=== PATIENT | male | born 1960 | race Caucasian/White ===

== ENCOUNTER 2020-11-08 16:48 | Outpatient (REF) | payer BC, SELFPAY ==
--- NOTE | ~2020-11-08 | XR_ITS ---
EXAMINATION: XR FOOT, RIGHT CLINICAL INFORMATION: Right foot injury. COMPARISON: None TECHNIQUE: AP, lateral, and oblique views of the right foot. FINDINGS: There is a mild hallux valgus deformity with mild degenerative changes at the first metatarsophalangeal joint. There is no acute fracture or dislocation. Nonacute deformity seen in the distal aspect of the fifth metatarsal with mild fifth metatarsophalangeal degenerative joint changes. The tarsal bones are normally aligned. There is a small retrocalcaneal spur. The soft tissues are unremarkable. XR/XR foot RT min 3V IMPRESSION: 1. Mild hallux valgus deformity and mild first metatarsophalangeal osteoarthritis. 2. Old healed fracture and surgery degenerative changes in the distal fifth metatarsal with mild osteoarthritis. 3. Small degenerative retrocalcaneal spur.
== END 2020-11-08 16:49 | disposition home or self-care (01) ==
LOC: HO.HMGCX 16:48
PROVIDERS: PCP Physician Assistant; Visit Provider Nurse Practitioner Family
DX: S99.921A Unspecified injury of right foot, initial encounter (principal)
CPT/HCPCS: 73630

== ENCOUNTER 2021-02-07 15:05 | Outpatient (REF) | payer BC, SELFPAY ==
[2021-02-07 16:26] LABS: PSA,Total (Free>4and<10) 1.56 ng/mL (0.00-4.00)
== END 2021-02-07 15:06 | disposition home or self-care (01) ==
LOC: HO.LAB 15:05
PROVIDERS: PCP Physician Assistant; Visit Provider Urology
DX: Z12.5 Encounter for screening for malignant neoplasm of prostate (principal); R97.20 Elevated prostate specific antigen [PSA]
CPT/HCPCS: 36415; 84153

== ENCOUNTER → 2021-02-09 15:20 | Outpatient (BNVA) | payer BC, SELFPAY | PROVIDERS: PCP Physician Assistant; Visit Provider Urology ==

== ENCOUNTER 2021-11-22 18:31 | Emergency (ER) | payer BC, SELFPAY ==
[2021-11-22 19:58] VITALS: BP 102/84; PULSE 72; RESP 15; TEMP 36.4; O2SAT 98; BMI 28.5
[2021-11-22] MEDS: Lidocaine HCl 2 % MPF 5 ML VIAL SUBCUT (22:36)
--- NOTE | 2021-11-22 23:31 | ED_ITS ---
HPI - Skin/Abscess/Foreign Bdy General Chief complaint: Skin/Abscess/Foreign Body Stated complaint: Abscess on Back Time Seen by Provider: 11/22/21 22:14 Source: patient Mode of arrival: ambulatory Limitations: no limitations History of Present Illness HPI narrative: Patient presents to the emergency department for evaluation of an abscess has been present to his upper back x1 week. Three days ago he was evaluated at an urgent care and was given a prescription for Bactrim but feels that the size and redness are increasing. Denies additional skin lesions. Denies fevers, chills, numbness or tingling near the abscess. Reports a history of similar occurring more than 20 years ago. MD complaint: abscess/boil Onset (ago): week(s) Quality: dull Related Data Previous Rx's Medication Instructions Recorded losartan 50 mg-hydrochlorothiazide 1 tab PO DAILY 90 Days #90 tab 01/18/21 12.5 mg tablet diclofenac sodium 75 mg 75 mg PO BID 30 Days #60 tab 06/07/21 tablet,delayed release ezetimibe 10 mg tablet 10 mg PO DAILY #30 tab 08/01/21 pravastatin 10 mg tablet 10 mg PO DAILY #90 tab 09/03/21 tamsulosin 0.4 mg capsule 0.4 mg PO DAILY #30 cap 10/05/21 sulfamethoxazole 800 1 tab PO Q12H 10 Days #20 tab 11/19/21 mg-trimethoprim 160 mg tablet (Bactrim DS) Allergies Allergy/AdvReac Type Severity Reaction Status Date / Time No Known Allergies Allergy Mild NOT Verified 11/19/21 13:56 APPLICABLE cephalexin [Keflex] Allergy Unknown rash Verified 11/19/21 13:56 niacin Allergy Unknown Rash Verified 11/19/21 13:56 [Niaspan Extended-Release] Statins Support Allergy Unknown Rash Verified 11/19/21 13:56 Review of Systems Review of Systems: Constitutional: No fever, chills, weakness or fatigue. Skin: No rash or itching. Positive abscess on back Cardiovascular: No chest pain. Respiratory: No shortness of breath, cough or sputum production. Gastrointestinal: No nausea, vomiting or diarrhea. No abdominal pain Genitourinary: No burning micturition. Musculoskeletal: No muscle pain, back pain, joint pain or stiffness. Psychiatric: No depression or anxiety. Yes all other systems are reviewed and are negative PMFSH Past Medical History Attestation statement: The following information was validated with the patient. 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 Blood pressure normal.? Heart rate normal.? Respiration rate normal. Temperature normal.? Oxygen saturation normal. Appearance: Alert.?Oriented to person, place and time. No acute distress.?Normal affect. Eyes: Pupils equal, round and reactive to light.? ENT: Pharynx normal.?? Neck: Normal inspection.? Neck supple.?? CVS: Heart sounds normal. Normal heart rate and rhythm.? Pulses normal.?? Respiratory: No respiratory distress.? Lung sounds clear to auscultation bilaterally?? Abdomen: Soft and non-tender. Skin: Skin warm and dry.? Normal skin color. 3 cm abscess to right upper back it is erythematous and indurated, central fluctuance Extremities: No lower extremity edema.? Neuro: Moves all extremities spontaneously. Sensation intact bilaterally. No motor deficits. Ambulates with normal steady gait. Course Course Course Narrative: Patient is a 61-year-old male presenting to the emergency department for evaluation of a cyst on his back. History physical exam consistent with abscess. No systemic toxicity, and patient is well-appearing. There is surrounding cellulitis, however he is already prescribed Bactrim. Not consistent with necrotizing fasciitis, myositis, DVT, osteomyelitis. Patient is now status post incision and drainage of abscess and tolerated the procedure well. No complications. No labs or imaging indicated at this time. Will discharge home to continue course of oral antibiotics and symptomatic treatment instructions. Discussed reasons to return to the emergency department, and follow-up with primary care provider. Patient agreeable with plan of care. Procedures Abscess I/D Site: back Side (if applicable): right Local Anesthetic: lidocaine 2% Amount of anesthesia used (mL): 5 Technique: incised with blade Irrigation: Yes Packing used?: none Discharge Plan Discharge Clinical Impression: Abscess Patient Disposition: Home, Self-Care Instructions: Abscess (ED), Incision and Drainage (ED) Additional Instructions: Continue taking Bactrim as prescribed. You may return to the emergency department for any new or worsening symptoms or concerns. If you develop worsening redness, swelling, pain, drainage, fevers, chills he should come back for further evaluation. Please contact your primary care provider to schedule follow-up visit within 1 week. Prescriptions: No Action losartan-hydrochlorothiazide 50-12.5 mg tablet 1 tab PO DAILY 90 Days Qty: 90 3RF diclofenac sodium 75 mg tablet,delayed release (DR/EC) 75 mg PO BID 30 Days Qty: 60 2RF ezetimibe 10 mg tablet 10 mg PO DAILY Qty: 30 4RF pravastatin 10 mg tablet 10 mg PO DAILY Qty: 90 1RF tamsulosin 0.4 mg capsule 0.4 mg PO DAILY Qty: 30 3RF sulfamethoxazole-trimethoprim [Bactrim DS] 800-160 mg tablet 1 tab PO Q12H 10 Days Qty: 20 0RF Referrals: Brooks Martinez PA-C [Primary Care Provider] - 1 week Interventions: ED Discharge Assessment Last Done: 11/22/21 23:57 Discharge Date/Time: 11/22/21 23:58
== END 2021-11-22 23:58 | disposition home or self-care (01) ==
PROVIDERS: Emergency Provider Internal Medicine; PCP Physician Assistant
DX: L02.212 Cutaneous abscess of back [any part, except buttock and flank] (principal); Z87.891 Personal history of nicotine dependence; Z79.899 Other long term (current) drug therapy
CPT/HCPCS: 10060; 99283; 99284

== ENCOUNTER → 2022-01-08 07:44 | Outpatient (REF) | payer BC, SELFPAY ==
--- NOTE | 2022-01-08 07:44 | CA_ITS ---
Acquisition Time: 2022-01-08 08:01:36 Total Exercise Time: 00:05:00 Test Indications: Chest Pain Medications: Protocol: LOUANN Max HR: 139 BPM 87% of Pred: 159 BPM Max BP: 172/082 mmHG Max Work Load: 7.0 METS Exercise stress test with exercise 5 min of Louann protocol, achieving 87% MPHR, 7 METs, with report of bilateral knee discomfort, without anginal symptoms, with isolated PAC, atrial cuplets and up to a 4 beat atrial run, with isolated PVC and one ventricular cuplet, with normotensive response to exercise, without EKG changes meeting criteria for ischemia. Test reviewed with Dr Ferrer. Referred By: Brooks Martinez Overread By: MIRIAN REYNOSO
== END ==
LOC: HO.CARD 07:44
PROVIDERS: PCP Physician Assistant; Visit Provider Physician Assistant
DX: R07.89 Other chest pain (principal)
CPT/HCPCS: 93017

== ENCOUNTER 2022-04-11 16:01 | Outpatient (REF) | payer BC, SELFPAY ==
[2022-04-11 16:40] LABS: Hemoglobin 15.1 g/dl (14.0-18.0); Mean Corpuscular HGB Conc 34.3 g/dl (31.0-36.0); Mean Corpuscular Volume 87.5 fL (80.0-98.0); Mean Platelet Volume 11.3 fL (9.4-12.4); Platelet Count 243 X10*3/uL (160-400); Red Blood Count 5.03 X10*6/uL (4.60-5.80); Red Cell Distribution Width 11.9 % (11.0-16.0); White Blood Count 10.5 X10*3/uL (4.8-10.8)
[2022-04-11 17:00] LABS: Alanine Aminotransferase 45 U/L (0-40); Albumin Level 4.6 g/dL (3.5-5.0); Alkaline Phosphatase 104 U/L (39-117); Anion Gap 15 (12-20); Aspartate Amino Transferase 27 U/L (5-37); Bilirubin Total 0.6 mg/dL (0.0-1.0); Blood Urea Nitrogen 24 mg/dL (9-16); Calcium 9.6 mg/dL (8.4-10.2); Carbon Dioxide 28 mmol/L (22-29); Chloride 105 mmol/L (96-108); Cholesterol 184 mg/dL; Estimated Glomerular Filt Rate > 60; Glucose Fasting 94 mg/dL (60-99); HDL Cholesterol 51 mg/dL; LDL Cholesterol Calculated 104 mg/dl; Potassium 3.7 mmol/L (3.3-5.1); Sodium 144 mmol/L (135-145); Total Protein 7.5 g/dL (6.5-8.0); Triglycerides 149 mg/dL
[2022-04-11 17:06] LABS: Prothrombin Time 11.5 SEC (10.0-13.1)
[2022-04-11 17:21] LABS: TSH reflex Free T4 0.78 uIU/mL (0.32-4.0)
[2022-04-11 17:27] LABS: Prostate Specific Antigen 2.07 ng/mL (<0.05-4.0)
[2022-04-11 17:43] LABS: Creatinine Urine 175.86 mg/dL; Microalbum/Creatinine Ratio Ur 3.9 ug/mg cr
== END 2022-04-11 16:02 | disposition home or self-care (01) ==
LOC: HO.LAB 16:01
PROVIDERS: Urology; PCP Physician Assistant; Visit Provider Physician Assistant
DX: Z01.818 Encounter for other preprocedural examination (principal); Z12.5 Encounter for screening for malignant neoplasm of prostate; N40.0 Benign prostatic hyperplasia without lower urinary tract symptoms; I10 Essential (primary) hypertension; E78.2 Mixed hyperlipidemia
CPT/HCPCS: 36415; 80053; 80061; 82043; 84153; 84443; 85027; 85610

== ENCOUNTER → 2022-04-12 06:15 | Outpatient (REF) | payer BC, SELFPAY ==
--- NOTE | 2022-04-12 06:30 | ECG_ITS ---
Test Reason : pre op Blood Pressure : / mmHG Vent. Rate : 066 BPM Atrial Rate : 066 BPM P-R Int : 222 ms QRS Dur : 092 ms QT Int : 394 ms P-R-T Axes : -24 -15 021 degrees QTc Int : 413 ms Sinus rhythm with 1st degree A-V block Inferior infarct , age undetermined Abnormal ECG When compared with ECG of 28-MAY-2007 12:16, No significant change was found Referred By: Brooks Martinez Electronically Signed By:EUGENIO ANDRADE
== END ==
LOC: HO.CARD 06:15
PROVIDERS: PCP Physician Assistant; Visit Provider Physician Assistant
DX: Z01.818 Encounter for other preprocedural examination (principal)
CPT/HCPCS: 93005

== ENCOUNTER 2022-08-29 16:00 | Outpatient (RCR) | payer BC, SELFPAY | END 2022-08-30 13:25 | disposition home or self-care (01) | LOC: HO.PT 16:00 | PROVIDERS: PCP Physician Assistant; Visit Provider Orthopaedic Surgery | DX: Z96.652 Presence of left artificial knee joint (principal) | CPT/HCPCS: 97110; 97112; 97116; 97140; 97161; 97530 ==

== ENCOUNTER 2022-11-13 10:38 | Outpatient (REF) | payer BC, SELFPAY ==
--- NOTE | 2022-11-13 10:41 | ECG_ITS ---
Test Reason : preop Blood Pressure : / mmHG Vent. Rate : 072 BPM Atrial Rate : 072 BPM P-R Int : 232 ms QRS Dur : 092 ms QT Int : 384 ms P-R-T Axes : 022 -09 057 degrees QTc Int : 420 ms Sinus rhythm with 1st degree A-V block Inferior infarct (cited on or before 12-APR-2022) Abnormal ECG When compared with ECG of 12-APR-2022 06:28, No significant change was found Referred By: Yael Ledbetter Electronically Signed By:MYNOR KHAN
[2022-11-13 11:10] LABS: MANUAL DIFF FLAG NO
[2022-11-13 12:10] LABS: Basophils Percent Auto 0.5 % (0-2); Eosinophils Absolute Auto 0.4 X10*3/uL (0.0-0.4); Eosinophils Percent Auto 4.9 % (0-4); Hematocrit 44.2 % (42.0-52.0); Hemoglobin 14.4 g/dl (14.0-18.0); Imm Gran Abs Auto 0.02 X10*3/uL (0.00-0.03); Imm Gran Pct Auto 0.3 % (0.0-0.4); Lymphocytes Absolute Auto 1.7 X10*3/uL (1.2-4.9); Lymphocytes Percent Auto 23.6 % (20-40); Mean Corpuscular HGB Conc 32.6 g/dl (31.0-36.0); Mean Corpuscular Hemoglobin 29.4 pg (27.0-33.0); Mean Corpuscular Volume 90.4 fL (80.0-98.0); Mean Platelet Volume 11.4 fL (9.4-12.4); Monocytes Absolute Auto 0.6 X10*3/uL (0.1-1.2); Monocytes Percent Auto 7.9 % (2-11); Neutrophils Absolute Auto 4.6 x10*3/uL (2.0-8.3); Neutrophils Percent Auto 62.8 % (45-73); Platelet Count 242 X10*3/uL (160-400); Red Blood Count 4.89 X10*6/uL (4.60-5.80); Red Cell Distribution Width 12.3 % (11.0-16.0); White Blood Count 7.3 X10*3/uL (4.8-10.8)
[2022-11-13 12:21] LABS: INTERNATIONAL NORM RATIO 0.9 (0.9-1.1); Prothrombin Time 10.8 SEC (10.0-13.1)
== END 2022-11-13 10:39 | disposition home or self-care (01) ==
LOC: HO.LAB 10:38
PROVIDERS: PCP Physician Assistant; Visit Provider Nurse Practitioner Family
DX: Z01.818 Encounter for other preprocedural examination (principal); Z13.0 Encounter for screening for diseases of the blood and blood-forming organs and certain disorders involving the immune mechanism
CPT/HCPCS: 36415; 85025; 85610; 93005

== ENCOUNTER 2022-11-18 15:20 | Outpatient (REF) | payer BC, SELFPAY ==
[2022-11-18 17:03] LABS: Hematocrit 42.5 % (42.0-52.0); Hemoglobin 14.2 g/dl (14.0-18.0); Mean Corpuscular HGB Conc 33.4 g/dl (31.0-36.0); Mean Corpuscular Hemoglobin 29.6 pg (27.0-33.0); Mean Corpuscular Volume 88.7 fL (80.0-98.0); Mean Platelet Volume 11.9 fL (9.4-12.4); Platelet Count 245 X10*3/uL (160-400); Red Blood Count 4.79 X10*6/uL (4.60-5.80); Red Cell Distribution Width 12.1 % (11.0-16.0); White Blood Count 10.4 X10*3/uL (4.8-10.8)
[2022-11-18 17:28] LABS: Alanine Aminotransferase 40 U/L (0-40); Albumin Level 4.4 g/dL (3.5-5.0); Alkaline Phosphatase 100 U/L (39-117); Anion Gap 12 (12-20); Aspartate Amino Transferase 24 U/L (5-37); Bilirubin Total 0.6 mg/dL (0.0-1.0); Blood Urea Nitrogen 17 mg/dL (9-16); Calcium 9.7 mg/dL (8.4-10.2); Carbon Dioxide 27 mmol/L (22-29); Chloride 106 mmol/L (96-108); Cholesterol 174 mg/dL; Estimated Glomerular Filt Rate > 60; Glucose Random 87 mg/dL (60-115); HDL Cholesterol 48 mg/dL; LDL Cholesterol Calculated 84 mg/dl; Potassium 3.8 mmol/L (3.3-5.1); Sodium 141 mmol/L (135-145); Total Protein 6.9 g/dL (6.5-8.0); Triglycerides 210 mg/dL
[2022-11-18 17:45] LABS: Prostate Specific Antigen Scr 1.58 ng/mL (<0.05-4.0); TSH reflex Free T4 1.98 uIU/mL (0.32-4.0)
[2022-11-18 18:04] LABS: Creatinine Urine 107.41 mg/dL; Microalbum/Creatinine Ratio Ur 7.4 ug/mg cr
== END 2022-11-18 15:21 | disposition home or self-care (01) ==
LOC: HO.LAB 15:20
PROVIDERS: PCP Physician Assistant; Visit Provider Nurse Practitioner Family
DX: Z01.818 Encounter for other preprocedural examination (principal); Z12.5 Encounter for screening for malignant neoplasm of prostate; I10 Essential (primary) hypertension; E78.2 Mixed hyperlipidemia
CPT/HCPCS: 36415; 80053; 80061; 82043; 84153; 84443; 85027

== ENCOUNTER 2023-02-19 10:00 | Outpatient (RCR) | payer BC, SELFPAY ==
--- NOTE | 2023-02-27 10:33 | MHC.PT.DC ---
[facility] [place] Office [place] Office [place] Office [address] Leonard Hough [address] [phone] F: [phone] F: [phone] F: [phone] F: [phone] Physical Therapy Discharge Report Diagnosis: S/P FAISAL Date of Surgery: 12/18/22 Date of Evaluation: 12/27/22 Date of Discharge: 02/20/23 Treatments to Date: 13 Cancellations to Date: 0 No Shows to Date: 0 Discharge Status: Achieved Goals Improved Function Independent with HEP Discharge Summary: Ta has progressed well with PT and has met goals of therapy. He demonstrates ROM 0-115 and strength is WNLs. He is independent with HEP and self management of symptoms. He has been instructed to continue with program and contact us with questions or concerns. Electronically signed by: Giovana Burciaga PT DPT Please sign and return to therapist. Thank you for your referral.
== END 2023-02-27 10:33 | disposition home or self-care (01) ==
LOC: HO.PT 10:00
PROVIDERS: PCP Physician Assistant; Visit Provider Orthopaedic Surgery
DX: Z98.890 Other specified postprocedural states (principal)
CPT/HCPCS: 97110; 97140; 97161; 97530

== ENCOUNTER 2023-07-30 08:17 | Outpatient (AMB) | payer BC, SELFPAY ==
[2023-07-30 08:34] VITALS: BP 140/98; PULSE 84; O2SAT 94; BMI 30.1
--- NOTE | 2023-07-30 08:34 | MHC.PC.OV ---
Vital Signs 07/30/23 08:34 Height 5 ft 11 in Weight 216 lb BMI 30.1 BP 140/98 H Blood Pressure Location Lt brachial Position Sitting Pulse 84 Pulse Source Pulse Oximeter Pulse Oximetry (%) 94 Oxygen Delivery Method Room Air Intake Visit Reasons: Missed last appointment in January ?? Allergies cephalexin [Keflex] Allergy (Unknown, Verified 07/30/23 08:45) rash niacin [Niaspan Extended-Release] Allergy (Unknown, Verified 07/30/23 08:45) Rash Statins Support Allergy (Unknown, Verified 07/30/23 08:45) Rash Medication List - Last Reconciled 07/30/23 by Brooks Martinez PA-C diclofenac sodium 75 mg PO BID 30 days ezetimibe 10 mg PO DAILY 90 days losartan-hydrochlorothiazide 50-12.5 mg 1 tab PO DAILY 90 days pravastatin 10 mg PO DAILY tamsulosin 0.4 mg PO DAILY Tobacco use date assessed: 07/30/23 Dental Screening Dental Screen Date: 07/30/23 Did you have a dental visit in the last 12 months?: Yes Did you have a dental problem in the last 6 months where you did not have access to dental care?: No Was dental information given to patient?: Patient has dentist HPI Missed last appointment in January ?? HPI Details Patient is a 62-year-old male here today for for an annual physical.? Patient is status post total knee arthroplasty.? Patient has a past medical history significant for hypertension, hyperlipidemia, knee osteoarthritis. concerns--> reports having an a cough, fatigue and shortness of breath over the last 3 weeks. He does report other folks in his household with similar symptoms. Has been using a lot of cough and cold medication [id number]. . Hypertension:? Patient's blood pressure today in office slightly elevated likely secondary to his using [id number] cough cold medication at this time..? He denies any headaches, shortness of breath or recent chest pain. .. Hyperlipidemia- patient continues on low-dose statin therapy with good effect. Most recent lipid panel acceptable with LDL at 104 Vaccines:? Up-to-date tetanus., UTD with COVID vac, up-to-date with shingles vaccine up-to-date with tetanus ? .. ? Colonoscopy done 2018 -polyp found repeat 5 years.-needs repeat colonoscopy PFSH Surgical History S/P left knee arthroscopy S/P nasal surgery History of back surgery S/P laparoscopic hernia repair Social History (Updated 07/30/23 @ 08:52 by Brooks Martinez PA-C) [facility] Alcohol intake: current Alcohol intake frequency: holidays/special occasions only Patient Tobacco Use Status: Former Tobacco user Quit Date: 1998 e-Cigarette/Vaping Use: Never Used Second Hand Smoke Exposure: Yes Substance Use Type: Marijuana service: No Current occupational status: retired 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 1. Little interest or pleasure in doing things: not at all 2. Feeling down, depressed, or hopeless: not at all 3. Trouble falling or staying asleep, or sleeping too much: not at all 4. Feeling tired or having little energy: not at all 5. Poor appetite or overeating: not at all 6. Feeling bad about yourself - or that you are a failure or have let yourself or your family down: not at all 7. Trouble concentrating on things, such as reading the newspaper or watching television: not at all 8. Moving or speaking so slowly that other people could have noticed. Or the opposite - being so fidgety or restless that you have been moving around a lot more than usual: not at all 9. Thoughts that you would be better off or of hurting yourself in some way: not at all Total score: 0 Depression Screening Interpretation: Negative Depression Screening Done: Yes Source: Developed by Drs. Ta Sanchez, Alivia Islas, Tony Richardson and colleagues, with an educational lucy from [employer]. Thrive Questionnaire Date Thrive assessed: 07/30/23 I am a: Patient What is your living situation today?: I have a steady place to live Within the past 12 months, did the food you bought not last and you didn't have the money to get more?: Never true Within the past 12 months, did you worry whether your food would run out before you got money to buy more?: Never true Do you have trouble paying for medicines?: No Do you have trouble getting transportation to medical appointments?: No Do you have trouble paying your heating and electricity bill?: No Do you have trouble taking care of your child, family member or friend?: No Do you have trouble with day-to-day activities such as bathing, preparing meals, shopping, managing finances, etc.?: No Are you currently unemployed and looking for a job?: No Are you interested in more education?: No Please select the resources that you would like help with: None THRIVE Score: 0 AUDIT C Alcohol Use Questionnaire (AUDIT-C) 1. How often do you have a drink containing alcohol?: Monthly or less 2. How many drinks containing alcohol do you have on a typical day when you are drinking?: 1 or 2 3. How often do you have six or more drinks on one occasion?: Never Total Score: 1 MAXIMINO-7 AMB Questionnaire MAXIMINO-7 Date MAXIMINO - 7 assessed: 07/30/23 Source: Developed by Drs. Ta Sanchez, Alivia Islas, Tony Richardson and colleagues, with an educational lucy from [employer]. Review of Systems Const Denies body aches, Denies chills, Denies excessive sweating, Denies fatigue, Denies fever(s) and Denies headache(s) Eyes Denies blurry vision ENT Denies dysphagia, Denies vertigo, Denies dizziness, Denies headache(s), Denies hearing loss and Denies tinnitus Card Denies chest pain, Denies chest pain with activity, Denies syncope, Denies irregular heart rhythm and Denies dyspnea Resp Denies chest congestion, Denies cough, Denies hemoptysis, Denies dyspnea and Denies wheezing GI Denies abdominal pain, Denies melena, Denies hematochezia, Denies coffee ground emesis, Denies dysphagia, Denies diarrhea, Denies nausea and Denies vomiting Denies difficulty urinating, Denies dysuria, Denies urinary frequency, Denies urinary hesitancy and Denies urinary urgency Musc Denies arthralgias, Denies limited range of motion, Denies muscle cramps and Denies muscle weakness Skin/Breast Denies rash and Denies skin ulcer Neuro Denies Abnormal speech present, Denies confusion, Denies vertigo, Denies dizziness, Denies syncope, Denies headache(s), Denies memory loss and Denies seizure-like activity Psych Denies anxiety, Denies confusion, Denies depression, Denies memory loss, Denies panic attacks and Denies paranoia Endo Denies excessive sweating, Denies fatigue, Denies flushing, Denies polydipsia and Denies polyuria Aller/Immun Denies wheezing Physical exam (Primary Care) Vital Signs: Last Vital Signs Pulse 84 07/30/23 08:34 BP 140/98 H 07/30/23 08:34 Pulse Ox 94 07/30/23 08:34 Oxygen Delivery Method Room Air 07/30/23 08:34 BMI result Body Mass Index 30.1 Tobacco/Smoking Status: Tobacco use Status Tobacco use date assessed 07/30/23 07/30/23 08:39 Patient Tobacco Use Status Former Tobacco user 07/30/23 08:34 e-Cigarette/Vaping Use Never Used 07/30/23 08:34 PHQ-9: PHQ-9 Score PHQ-9: Total score 0 07/30/23 08:41 Depression Screening Interpretation: Negative Thrive Assessment: Date of Thrive Assessment Date Thrive assessed 07/30/23 07/30/23 08:39 Const General: cooperative, comfortable, no acute distress, alert and awake; No confusion Orientation/consciousness: oriented to person, oriented to place, patient oriented x3 and No confusion HENMT Head: Yes normocephalic Ears: external ears normal and TM's normal bilaterally Face and sinus: No sinus tenderness Mouth: Normal oral and palatal mucosa present and tongue normal Teeth and gingiva: dentition normal and gingiva normal Throat: Yes posterior oropharynx normal, Yes tonsils normal and Yes uvula midline Eyes Conjunctivae: conjunctivae normal Sclerae: sclerae normal Pupils: Equal, round and reactive pupils present EOM: EOMs intact bilaterally Direct Ophthalmoscopy: No no photophobia Neck Neck: Yes no lymphadenopathy, No tender and Yes no JVD Thyroid: Thyroid normal Carotids: no bruits Chest Chest palpation & inspection: no tenderness Resp Effort & Inspection: normal respiratory effort, no audible wheezes, not labored and no stridor Auscultation: no crackles, no rales, no rhonchi and no wheezes Cardio Jugular venous distension: no JVD Rate: regular rate, not bradycardic and not tachycardic Rhythm: regular rhythm Bruits: no carotid bruits Peripheral pulses: Peripheral pulses 2+ throughout GI Inspection: Yes normal to inspection, No abdominal wall ecchymosis and No visible herniation Palpation (GI): Soft to palpation, nontender, no guarding, not rigid and No hepatosplenomegaly present Auscultation: normoactive bowel sounds General: Yes no CVA tenderness Back/Spine/Pelvis Back: no CVA tenderness and No back tenderness Cervical Spine: cervical ROM normal Thoracic/Lumbar Spine: thoracic and lumbar spine normal to inspection, straight leg raise negative bilaterally, No thoraco-lumbar ROM limited and No lumbar spinal tenderness Skin Lesions: no lesions Rashes: no rashes Wounds: no wounds Neuro General: oriented to person, oriented to place, patient oriented x3, CN's II-XI intact bilaterally and No confusion Cranial nerves: Yes Equal, round and reactive pupils present and Yes Normal accommodation reflex present Cognition (Neuro): normal cognition Speech: No Abnormal speech present Gait exam (Neuro): Normal gait present Motor exam (neuro): 5/5 motor strength present throughout Extrem Right upper extremity: full ROM; no cyanosis Left upper extremity: full ROM; no cyanosis Right lower extremity: no edema Left lower extremity: no edema Psych Appearance: grossly normal Mental Status: mental status grossly normal Affect: normal affect Attitude: cooperative Thought process: Normal thought process present Assessment and Plan Assessment & Plan (1) Annual physical exam: Code(s): Z00.00 - Encounter for general adult medical examination without abnormal findings (2) HTN (hypertension): Code(s): I10 - Essential (primary) hypertension Qualifiers: Hypertension type: essential hypertension Qualified Code(s): I10 - Essential (primary) hypertension Plan: Patient's blood pressure slightly elevated today in office, has been on cough cold medication for his bronchitis over the last few weeks.. Will continue current dose of antihypertensive medication with goal blood pressure to be below 140/90 (3) HLD (hyperlipidemia): Code(s): E78.5 - Hyperlipidemia, unspecified Qualifiers: Hyperlipidemia type: mixed hyperlipidemia Qualified Code(s): E78.2 - Mixed hyperlipidemia Plan: Patient's most recent lipid panel showing acceptable readings. Will continue current dose of high cholesterol medication. Goal LDL to be below 130 (4) Bronchitis: Code(s): J40 - Bronchitis, not specified as acute or chronic Plan: Has had an upper respiratory, shortness shortness of breath and fatigue over the last 3 weeks. He does report other family members in his home With similar symptoms. He is a previous smoker. Will send for x-ray to evaluate for any pulmonary infiltrate. Will supply patient with prednisone taper and azithromycin (5) Colon cancer screening: Code(s): Z12.11 - Encounter for screening for malignant neoplasm of colon Plan: Has history of colonic polyp. Needed repeat colonoscopy in 2022. Orders: Orders SARS-CoV2/FLU/RSV Today J40 - Bronchitis, not specified as acute or chronic Lipid Panel Today E78.2 - Mixed hyperlipidemia Prostate Specific Antigen Scr Today N40.0 - Benign prostatic hyperplasia without lower urinary tract symptoms, Z12.5 - Encounter for screening for malignant neoplasm of prostate XR chest 2V Today J40 - Bronchitis, not specified as acute or chronic Microalbumin, Random (w Creat) Today I10 - Essential (primary) hypertension Comprehensive [place]. Panel Fast Today I10 - Essential (primary) hypertension Referrals Gastroenterology Referral Z12.11 - Encounter for screening for malignant neoplasm of colon Medications: New prednisone Take 3 tablets x3 days, 2 tablets x3 days, 1 tablet x3 days 10 mg PO DIRECTED 18 tabs 0RF 9 days J40 - Bronchitis, not specified as acute or chronic azithromycin For 250 mg dose pack: take 500 mg today (day 1), then 250 mg for 4 days (days 2-5) PO 6 tabs 0RF J40 - Bronchitis, not specified as acute or chronic Coding Level of Care Code Est Pt Prev Care 40-64y(87323) Diagnoses Annual physical exam Z00.00 Essential hypertension I10 Hypertension type: essential hypertension Mixed hyperlipidemia E78.2 Hyperlipidemia type: mixed hyperlipidemia Bronchitis J40 Colon cancer screening Z12.11
== END 2023-07-30 09:09 | disposition home or self-care (01) ==
PROVIDERS: PCP Physician Assistant; Visit Provider Physician Assistant
DX: Z00.00 Encounter for general adult medical examination without abnormal findings (principal); I10 Essential (primary) hypertension; E78.2 Mixed hyperlipidemia; J40 Bronchitis, not specified as acute or chronic; Z12.11 Encounter for screening for malignant neoplasm of colon
CPT/HCPCS: 99396

== ENCOUNTER 2023-07-30 09:13 | Outpatient (REF) | payer BC, SELFPAY ==
--- NOTE | ~2023-07-30 | XR_ITS ---
EXAMINATION: XR CHEST 2 VIEWS CLINICAL INFORMATION: Bronchitis. COMPARISON: Chest radiograph dated 05/28/2007. TECHNIQUE: Frontal and lateral views of the chest were obtained. FINDINGS: The heart, great vessels, pulmonary vasculature and mediastinum are normal. The lungs show no focal infiltrate, effusion or pneumothorax. There is bilateral bronchiolar wall thickening. There is mild elevation the right hemidiaphragm. There is no acute osseous abnormality. XR/XR chest 2V IMPRESSION: 1. No focal infiltrate or congestive heart failure is seen. 2. There is bilateral bronchiolar wall thickening, which can be associated with acute bronchiolitis or reactive airways disease. 3. There is mild elevation of the right hemidiaphragm.
[2023-07-30 09:57] LABS: Influenza A PCR NEGATIVE (Negative); Influenza B PCR NEGATIVE (Negative); Resp Syncy Virus RNA Qual PCR NEGATIVE (Negative); SARS COV2 PCR INHOUSE NEGATIVE (Negative)
== END 2023-07-30 09:14 | disposition home or self-care (01) ==
LOC: HO.XRAY 09:13
PROVIDERS: PCP Physician Assistant; Visit Provider Physician Assistant
DX: Z11.52 Encounter for screening for COVID-19 (principal); Z20.822 Contact with and (suspected) exposure to COVID-19; J40 Bronchitis, not specified as acute or chronic
CPT/HCPCS: 0241U; 71046

== ENCOUNTER 2023-08-01 09:46 | Outpatient (AMB) | payer BC, SELFPAY ==
--- NOTE | 2023-08-01 09:52 | MHC.OFFWIV ---
Intake Vital Signs 08/01/23 09:54 Height 5 ft 11 in Weight 97.976 kg BMI 30.1 BP 120/70 Blood Pressure Location Lt brachial Position Sitting Pulse 74 Pulse Source Pulse Oximeter Temp 97.4 F Temp Source Temporal Artery Scan Pulse Oximetry (%) 95 Oxygen Delivery Method Room Air Intake Visit Reasons: EP [place] on neck Intake Note: pt is here today for red [place] on neck started Friday Patient Tobacco Use Status: Former Tobacco user Quit Date: 1998 Allergies cephalexin [Keflex] Allergy (Unknown, Verified 08/01/23 09:55) rash niacin [Niaspan Extended-Release] Allergy (Unknown, Verified 08/01/23 09:55) Rash Statins Support Allergy (Unknown, Verified 08/01/23 09:55) Rash Do you need a note to return to daycare/school/sports/work: No HPI HPI Comments History of Present Illness Details 1010 62 year old male presents w/ rash on back of head. No other complaints. No fevers, chills,headache, joint pain, cp, sob, n/v/d. PE- erythema migrans ( reddened area circular pattern w/ central clearing) Concerns for ringworm vs lyme. No signs of meningitis Plan- lyme and tick testing Will start doxy 100 mg po bid X 14 days and extend if results are + --> 24 days. 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 If you were prescribed antibiotics today, it is important that you take your medication to their entirety, do not skip any doses, do not finish them early. Follow-up with your primary care provider this week. Return to the emergency department with new or worsening symptoms. In case of emergency call 911 Orders: Orders Lyme IgG/IgM w/reflex to WB Today A69.20 - Lyme disease, unspecified Tick-borne Disease Molecular Today A69.20 - Lyme disease, unspecified Medications: New clotrimazole 1% 1 appl topical BID 4 weeks 15 grams 0RF doxycycline hyclate 100 mg PO BID 28 caps 0RF 14 days Coding Level of Care Code Est Pt Level 3 (21170) Diagnoses Erythema migrans (Lyme disease) A69.20
[2023-08-01 09:54] VITALS: BP 120/70; PULSE 74; TEMP 36.3; O2SAT 95; BMI 30.1
== END 2023-08-01 11:52 | disposition home or self-care (01) ==
PROVIDERS: PCP Physician Assistant; Visit Provider Physician Assistant
DX: A69.20 Lyme disease, unspecified (principal)
CPT/HCPCS: 99213

== ENCOUNTER 2023-08-01 10:08 | Outpatient (REF) | payer BC, SELFPAY ==
[2023-08-04 19:48] LABS: Lyme Abs Screen <0.90 index
[2023-08-04 22:54] LABS: A. Phagocytphilium DNA,RT-PCR NOT DETECTED (NOT DETECTED); Babesia Microti DNA, RT-PCR NOT DETECTED (NOT DETECTED); Borrelia Miyamotoi,DNA RT-PCR NOT DETECTED (NOT DETECTED); E.Chaffeensis DNA RT-PCR NOT DETECTED (NOT DETECTED); Lyme(Borrelia ssp)DNA RT-PCR NOT DETECTED (NOT DETECTED)
== END 2023-08-01 10:09 | disposition home or self-care (01) ==
LOC: HO.HMGCLDS 10:08
PROVIDERS: PCP Physician Assistant; Visit Provider Physician Assistant
DX: A69.20 Lyme disease, unspecified (principal)
CPT/HCPCS: 36415; 86617; 86618; 87468; 87469; 87478; 87484; 87798

== ENCOUNTER 2023-08-12 07:37 | Outpatient (REF) | payer BC, SELFPAY ==
[2023-08-12 08:36] LABS: Alanine Aminotransferase 47 U/L (0-40); Albumin Level 4.2 g/dL (3.5-5.0); Alkaline Phosphatase 103 U/L (39-117); Anion Gap 13 (12-20); Aspartate Amino Transferase 24 U/L (5-37); Bilirubin Total 0.5 mg/dL (0.0-1.0); Blood Urea Nitrogen 18 mg/dL (9-16); Calcium 9.7 mg/dL (8.4-10.2); Carbon Dioxide 30 mmol/L (22-29); Chloride 105 mmol/L (96-108); Cholesterol 192 mg/dL (<200); Estimated Glomerular Filt Rate > 60; Glucose Fasting 122 mg/dL (60-99); HDL Cholesterol 50 mg/dL (>40); LDL Cholesterol Calculated 117 mg/dL (<100); Potassium 4.3 mmol/L (3.3-5.1); Sodium 144 mmol/L (135-145); Total Protein 7.3 g/dL (6.5-8.0); Triglycerides 127 mg/dL (<150)
[2023-08-12 12:12] LABS: Creatinine Urine 120.05 mg/dL; Microalbum/Creatinine Ratio Ur 9.9 ug/mg cr (<30)
== END 2023-08-12 07:38 | disposition home or self-care (01) ==
LOC: HO.LAB 07:37
PROVIDERS: PCP Physician Assistant; Visit Provider Physician Assistant
DX: Z12.5 Encounter for screening for malignant neoplasm of prostate (principal); N40.0 Benign prostatic hyperplasia without lower urinary tract symptoms; I10 Essential (primary) hypertension; E78.2 Mixed hyperlipidemia
CPT/HCPCS: 36415; 80053; 80061; 82043; 82570; 84153

== ENCOUNTER 2023-09-24 14:02 | Outpatient (AMB) | payer BC, SELFPAY ==
--- NOTE | 2023-09-24 14:31 | A.OFFVIS_ITS ---
Intake Visit Reasons: Elevated PSA Intake Note: Patient presents today for a follow-up on PSA Results: 6.30 ng/mL, 08/12/2023. Meds- Tamsulosin Allergies to Antibiotic- Cephalexin Blood Thinner- None Post Void Residual: 61 mL Compound Filler Required: No Accompanied by: Self / Same As Patient Allergies cephalexin [Keflex] Allergy (Unknown, Verified 09/24/23 14:34) rash niacin [Niaspan Extended-Release] Allergy (Unknown, Verified 09/24/23 14:34) Rash Statins Support Allergy (Unknown, Verified 09/24/23 14:34) Rash HPI Comments Details: Ta is a 63-year-old male who is here for new patient evaluation due to elevated PSA. The patient reports obstructive voiding symptoms, weak urinary flow with hesitancy. Denies dysuria or gross hematuria. I have discussed increasing tamsulosin to b.i.d. I have discussed PSA is a blood test, prostate specific antigen and is an enzyme secreted by the prostate gland. Elevated PSA may be due to multiple conditions including prostate inflammatory condition, enlarged prostate or prostate cancer. Urinalysis is nitrite positive. I will send urine for culture. Will await results of urine culture prior to starting antibiotics. Discussed repeat PSA. Will check renal/bladder ultrasound. 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 Cognitive needs: No Hearing needs: No Vision needs: Yes (glasses) Review of Systems Const All systems reviewed & are unremarkable except as noted in HPI and below Reports no additional complaints Eyes Reports no additional complaints ENT Reports no additional complaints Card Reports no additional complaints Resp Reports no additional complaints GI Reports no additional complaints Reports as per HPI Musc Reports no additional complaints Skin/Breast Reports system reviewed and no additional complaints, except as documented Neuro Reports no additional complaints Psych Reports no additional complaints Endo Reports no additional complaints Yinka/Lymph Reports no additional complaints Aller/Immun Reports no additional complaints Physical Exam Const General: healthy appearing, no acute distress and well developed Orientation/consciousness: patient oriented x3 HEENT Head: Yes normocephalic and Yes atraumatic Eyes Conjunctivae: conjunctivae normal Neck Neck: Yes normal visual inspection Chest Chest palpation & inspection: normal inspection of the chest Resp Effort & Inspection: normal respiratory effort Cardio Rate: regular rate GI Inspection: Yes normal to inspection Palpation (GI): Soft to palpation Other: Prostate-smooth Skin General skin exam: no rashes or lesions noted Neuro General: patient oriented x3 Extrem General: No pedal edema Psych Appearance: grossly normal Affect: normal affect Results AMB Urinalysis, Automated UA Leukoctes 15 Jairo/uL Last Edit by MERCY Laws on 09/24/23 14:44 UA Nitrite Positive Last Edit by MERCY Laws on 09/24/23 14:44 UA Urobilinogen 3.5 mg/dL Last Edit by MERCY Laws on 09/24/23 14:4 4 UA Protein 15 mg/dL Last Edit by MERCY Laws on 09/24/23 14:44 UA pH 5.5 Last Edit by MERCY Laws on 09/24/23 14:44 UA Blood 10 Tanner/uL Last Edit by MERCY Laws on 09/24/23 14:44 UA Specific [place] 1.025 Last Edit by MERCY Laws on 09/24/23 14: 44 UA Ketone Positive Last Edit by MERCY Laws on 09/24/23 14:44 UA Bilirubin 0 mg/dL Last Edit by MERCY Laws on 09/24/23 14:44 UA Glucose 0 mg/dL Last Edit by MERCY Laws on 09/24/23 14:44 Results Reviewed Results Reviewed: Laboratory Last Values Urine pH (Auto) 5.5 09/24/23 14:34 Specific [place] (Auto) 1.025 09/24/23 14:34 Urine Protein (Auto) 15 mg/dL 09/24/23 14:34 Glucose (UA)(Auto) 0 mg/dL 09/24/23 14:34 Urine Ketones (Auto) Positive 09/24/23 14:34 Urine Blood (Auto) 10 Tanner/uL 09/24/23 14:34 Urine Nitrite (Auto) Positive 09/24/23 14:34 Urine Bilirubin (Auto) 0 mg/dL 09/24/23 14:34 Urine Urobilinogen (Auto) 3.5 mg/dL 09/24/23 14:34 Leukocyte Esterase (Auto) 15 Jairo/uL 09/24/23 14:34 Assessment & Plan Assessment & Plan (1) Elevated PSA: Code(s): R97.20 - Elevated prostate specific antigen [PSA] Category: Medical (2) BPH (benign prostatic hyperplasia): Code(s): N40.0 - Benign prostatic hyperplasia without lower urinary tract symptoms Category: Medical Qualifiers: Lower urinary tract symptom presence: symptoms absent Qualified Code(s): N40.0 - Benign prostatic hyperplasia without lower urinary tract symptoms (3) Weak urinary stream: Code(s): R39.12 - Poor urinary stream Category: Medical Plan Urinalysis is nitrite positive. I will send urine for culture. Will await results of urine culture prior to starting antibiotics. Discussed repeat PSA. Will check renal/bladder ultrasound. Orders: Orders AMB Urinalysis Automated 09/24/23 Z13.9 - Encounter for screening, unspecified Urine Culture 09/24/23 N39.0 - Urinary tract infection, site not specified AMB Post Void Residual by ultrasound 09/24/23 N39.8 - Other specified disorders of urinary system PSA,Total (Free>4and<10) 4 Weeks R97.20 - Elevated prostate specific antigen [PSA] US retroperitoneal comp 5 Weeks R97.20 - Elevated prostate specific antigen [PSA], N40.0 - Benign prostatic hyperplasia without lower urinary tract symptoms Medications: Changed From tamsulosin 0.4 mg PO DAILY 30 caps 3RF N40.0 - Benign prostatic hyperplasia without lower urinary tract symptoms To tamsulosin 0.4 mg PO BID 60 caps 3RF N40.0 - Benign prostatic hyperplasia without lower urinary tract symptoms Patient Instructions: The patient had an opportunity to ask questions regarding treatment plan. All questions were answered. Laboratory results were discussed and reviewed in detail. No major barriers to understanding were identified. The patient expressed understanding and agreement with the above treatment plan. The patient is aware they should contact our office by phone for worsening of their current condition or the appearance of new symptoms. Compliance is encouraged with any medications and followup testing that is ordered. It is a privilege to be allowed the opportunity to participate in the urologic care of your patient. If you have any questions or concerns regarding treatment for the above conditions please do not hesitate to contact me. The office telephone contact is [phone]. This note is constructed in part using voice recognition software. While every effort has been made to ensure accuracy stone crusher operator errors may have been included. Yours sincerely, Elsie Beckman MD Coding Level of Care Code New Pt Level 4 (24139) Diagnoses Elevated PSA R97.20 Benign prostatic hyperplasia without lower urinary tract symptoms N40.0 Lower urinary tract symptom presence: symptoms absent Weak urinary stream R39.12
== END 2023-09-24 15:08 | disposition home or self-care (01) ==
PROVIDERS: PCP Physician Assistant; Visit Provider Urology
DX: R97.20 Elevated prostate specific antigen [PSA] (principal); N40.0 Benign prostatic hyperplasia without lower urinary tract symptoms; R39.12 Poor urinary stream
CPT/HCPCS: 99204

== ENCOUNTER 2023-09-24 14:02 | Outpatient (REF) | payer BC, SELFPAY | END 2023-09-24 14:03 | disposition home or self-care (01) | LOC: HO.LAB 14:02 | PROVIDERS: PCP Physician Assistant; Visit Provider Urology | DX: N39.0 Urinary tract infection, site not specified (principal); N39.8 Other specified disorders of urinary system | CPT/HCPCS: 81003; 87086; 87088; 87186 ==

== ENCOUNTER 2023-10-20 09:41 | Outpatient (REF) | payer BC, SELFPAY ==
--- NOTE | ~2023-10-20 | US_ITS ---
EXAMINATION: US RETROPERITONEAL COMPLETE (RENAL) CLINICAL INFORMATION: Elevated prostate-specific antigen (PSA). COMPARISON: Renal ultrasound 02/21/2016. TECHNIQUE: Real-time imaging of the kidneys and bladder. FINDINGS: RIGHT KIDNEY: 11.1 x 6.5 x 6.2 cm (SAG x AP x TRV). The kidney is normal in size, contour, and echogenicity. Renal cortical thickness is normal. No calculi or focal parenchymal lesions. No hydronephrosis. LEFT KIDNEY: 11.8 x 5.9 x 5.7 cm (SAG x AP x TRV). The kidney is normal in size, contour, and echogenicity. Renal cortical thickness is normal. No calculi or focal parenchymal lesions. No hydronephrosis. BLADDER: Well distended and normal. Bilateral ureteral jets are demonstrated. Prevoid bladder volume is 165 mL. Postvoid bladder volume is 174 mL. PROSTATE: There is a prostatic impression upon the bladder base. Some anterior nodularity is questioned. Prostate dimensions are 4.4 x 4.1 x 4.8 cm (volume 45.4 mL). US/US retroperitoneal comp IMPRESSION: 1. Unremarkable ultrasound appearance of the bilateral kidneys. 2. There is an increased postvoid residual volume. 3. There is prostatomegaly. A prostate nodule is questioned. Given the provided history of an elevated serum PSA level, consider further evaluation with prostate MRI.
== END 2023-10-20 09:42 | disposition home or self-care (01) ==
LOC: HO.US 09:41
PROVIDERS: PCP Physician Assistant; Visit Provider Urology
DX: N40.0 Benign prostatic hyperplasia without lower urinary tract symptoms (principal); R97.20 Elevated prostate specific antigen [PSA]
CPT/HCPCS: 76770

== ENCOUNTER 2023-10-30 07:32 | Outpatient (REF) | payer BC, SELFPAY ==
[2023-10-30 09:37] LABS: PSA,Total (Free>4and<10) 2.71 ng/mL (0.00-4.00)
== END 2023-10-30 07:33 | disposition home or self-care (01) ==
LOC: HO.LAB 07:32
PROVIDERS: Visit Provider Urology
DX: Z12.5 Encounter for screening for malignant neoplasm of prostate (principal); R97.20 Elevated prostate specific antigen [PSA]
CPT/HCPCS: 36415; 84153

== ENCOUNTER 2023-11-06 08:34 | Outpatient (AMB) | payer BC, SELFPAY ==
--- NOTE | 2023-11-06 07:28 | A.OFFVIS_ITS ---
Intake Visit Reasons: 6w/US/PSA Intake Note: Patient presents today for a follow-up on PSA Results: Meds- Tamsulosin Allergies to Antibiotic- Cephalexin Blood Thinner- None Post Void Residual: 79 mL Hot Press Operator Required: No Accompanied by: Self / Same As Patient Allergies cephalexin [Keflex] Allergy (Unknown, Verified 11/06/23 08:58) rash niacin [Niaspan Extended-Release] Allergy (Unknown, Verified 11/06/23 08:58) Rash Statins Support Allergy (Unknown, Verified 11/06/23 08:58) Rash Medication List - Last Reconciled 11/06/23 by Elsie Beckman MD clotrimazole 1% 1 appl topical BID 4 weeks diclofenac sodium 75 mg PO BID 30 days doxycycline hyclate 100 mg PO BID 14 days ezetimibe 10 mg PO DAILY 90 days losartan-hydrochlorothiazide 50-12.5 mg 1 tab PO DAILY 90 days pravastatin 10 mg PO DAILY prednisone 10 mg PO DIRECTED 9 days sulfamethoxazole-trimethoprim 800-160 mg (Bactrim DS) 1 tab PO BID 7 days tamsulosin 0.4 mg PO BID HPI Comments Details: 11/06/2023 Ta is here for follow-up. He was initially seen on 09/24/2023 for elevated PSA. Urinalysis on 09/24/2023 was nitrite positive and was sent for culture. Discussed increasing tamsulosin from once a day to b.i.d.. Urine culture came back positive and he was treated with Bactrim. I have reviewed renal ultrasound performed 10/20/2023--enlarged prostate, question prostate nodule. Bladder-- Prevoid bladder volume is 165 mL. Postvoid bladder volume is 174 mL. The patient states that since increasing the tamsulosin to twice a day his urine flow has improved. In review of labs PSA on 08/12/2023 was 6.30. Repeat PSA 10/30/2023 is 2.71 which is likely improved due to treatment of UTI with antibiotics. Urinalysis-negative. Prostate Exam: Prostate is smooth no suspicious nodules palpated, mildly enlarged. PVR 79 mL. Will continue to monitor PSA and PVR. Tamsulosin b.i.d. Plan office cystoscopy on follow-up. Review of chart 09/24/2023--Ta is a 63-year-old male who is here for new patient evaluation due to elevated PSA. The patient reports obstructive voiding symptoms, weak urinary flow with hesitancy. Denies dysuria or gross hematuria. I have discussed increasing tamsulosin to b.i.d. I have discussed PSA is a blood test, prostate specific antigen and is an enzyme secreted by the prostate gland. Elevated PSA may be due to multiple conditions including prostate inflammatory condition, enlarged prostate or prostate cancer. Urinalysis is nitrite positive. I will send urine for culture. Will await results of urine culture prior to starting antibiotics. Discussed repeat PSA. Will check renal/bladder ultrasound. 11/06/2023--monitor PSA and PVR. Tamsulosin b.i.d. Plan office cystoscopy on follow-up. 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 Cognitive needs: No Hearing needs: No Vision needs: Yes (glasses) Review of Systems Const All systems reviewed & are unremarkable except as noted in HPI and below Reports no additional complaints Eyes Reports no additional complaints ENT Reports no additional complaints Card Reports no additional complaints Resp Reports no additional complaints GI Reports no additional complaints Reports as per HPI Musc Reports no additional complaints Skin/Breast Reports system reviewed and no additional complaints, except as documented Neuro Reports no additional complaints Psych Reports no additional complaints Endo Reports no additional complaints Yinka/Lymph Reports no additional complaints Aller/Immun Reports no additional complaints Physical Exam Const General: healthy appearing, no acute distress and well developed Orientation/consciousness: patient oriented x3 HEENT Head: Yes normocephalic and Yes atraumatic Eyes Conjunctivae: conjunctivae normal Neck Neck: Yes normal visual inspection Chest Chest palpation & inspection: normal inspection of the chest Resp Effort & Inspection: normal respiratory effort Cardio Rate: regular rate GI Inspection: Yes normal to inspection Palpation (GI): Soft to palpation Other: Prostate Exam: Prostate is smooth no suspicious nodules palpated, mildly enlarged. Skin General skin exam: no rashes or lesions noted Neuro General: patient oriented x3 Extrem General: No pedal edema Psych Appearance: grossly normal Affect: normal affect Office Procedures Post Void Residual Post Residual Void Post Void Residual (PVR): 79 [id number] Void Residual by ultrasound Results AMB Urinalysis, Automated UA Leukoctes 0 Jairo/uL Last Edit by MERCY Laws on 11/06/23 09:17 UA Nitrite Negative Last Edit by MERCY Laws on 11/06/23 09:17 UA Urobilinogen 0.2 mg/dL Last Edit by MERCY Laws on 11/06/23 09:1 7 UA Protein 0 mg/dL Last Edit by MERCY Laws on 11/06/23 09:17 UA pH 6.0 Last Edit by MERCY Laws on 11/06/23 09:17 UA Blood 0 Tanner/uL Last Edit by MERCY Laws on 11/06/23 09:17 UA Specific [place] 1.025 Last Edit by MERCY Laws on 11/06/23 09: 17 UA Ketone Negative Last Edit by MERCY Laws on 11/06/23 09:17 UA Bilirubin 0 mg/dL Last Edit by MERCY Laws on 11/06/23 09:17 UA Glucose 0 mg/dL Last Edit by MERCY Laws on 11/06/23 09:17 Results Reviewed Results Reviewed: Laboratory Last Values Urine pH (Auto) 6.0 11/06/23 09:01 Specific [place] (Auto) 1.025 11/06/23 09:01 Urine Protein (Auto) 0 mg/dL 11/06/23 09:01 Glucose (UA)(Auto) 0 mg/dL 11/06/23 09:01 Urine Ketones (Auto) Negative 11/06/23 09:01 Urine Blood (Auto) 0 Tanner/uL 11/06/23 09:01 Urine Nitrite (Auto) Negative 11/06/23 09:01 Urine Bilirubin (Auto) 0 mg/dL 11/06/23 09:01 Urine Urobilinogen (Auto) 0.2 mg/dL 11/06/23 09:01 Leukocyte Esterase (Auto) 0 Jairo/uL 11/06/23 09:01 Date of Service: 10/20/23 EXAMINATION: US RETROPERITONEAL COMPLETE (RENAL) CLINICAL INFORMATION: Elevated prostate-specific antigen (PSA). COMPARISON: Renal ultrasound 02/21/2016. TECHNIQUE: Real-time imaging of the kidneys and bladder. FINDINGS: RIGHT KIDNEY: 11.1 x 6.5 x 6.2 cm (SAG x AP x TRV). The kidney is normal in size, contour, and echogenicity. Renal cortical thickness is normal. No calculi or focal parenchymal lesions. No hydronephrosis. LEFT KIDNEY: 11.8 x 5.9 x 5.7 cm (SAG x AP x TRV). The kidney is normal in size, contour, and echogenicity. Renal cortical thickness is normal. No calculi or focal parenchymal lesions. No hydronephrosis. BLADDER: Well distended and normal. Bilateral ureteral jets are demonstrated. Prevoid bladder volume is 165 mL. Postvoid bladder volume is 174 mL. PROSTATE: There is a prostatic impression upon the bladder base. Some anterior nodularity is questioned. Prostate dimensions are 4.4 x 4.1 x 4.8 cm (volume 45.4 mL). IMPRESSION: 1. Unremarkable ultrasound appearance of the bilateral kidneys. 2. There is an increased postvoid residual volume. 3. There is prostatomegaly. A prostate nodule is questioned. Given the provided history of an elevated serum PSA level, consider further evaluation with prostate MRI. Assessment & Plan Assessment & Plan (1) Elevated PSA: Code(s): R97.20 - Elevated prostate specific antigen [PSA] Category: Medical (2) BPH (benign prostatic hyperplasia): Code(s): N40.0 - Benign prostatic hyperplasia without lower urinary tract symptoms Category: Medical Qualifiers: Lower urinary tract symptom presence: symptoms absent Qualified Code(s): N40.0 - Benign prostatic hyperplasia without lower urinary tract symptoms (3) Weak urinary stream: Code(s): R39.12 - Poor urinary stream Category: Medical Plan monitor PSA and PVR. Tamsulosin b.i.d. Plan office cystoscopy on follow-up. Orders: Orders AMB Post Void Residual by ultrasound Today N39.8 - Other specified disorders of urinary system AMB Urinalysis Automated Today Z13.9 - Encounter for screening, unspecified Patient Instructions: The patient had an opportunity to ask questions regarding treatment plan. The patient expressed understanding and agreement with the above treatment plan. The patient is aware they should contact our office by phone for worsening of their current condition or the appearance of new symptoms. Compliance is encouraged with any medications and followup testing that is ordered. It is a privilege to be allowed the opportunity to participate in the urologic care of your patient. If you have any questions or concerns regarding treatment for the above conditions please do not hesitate to contact me. The office telephone contact is [phone]. This note is constructed in part using voice recognition software. While every effort has been made to ensure accuracy staffing operations manager errors may have been included. Yours sincerely, Elsie Beckman MD Coding Level of Care Code Est Pt Level 4 (87954) Complex EM visit Add On G2211 Diagnoses Elevated PSA R97.20 Benign prostatic hyperplasia without lower urinary tract symptoms N40.0 Lower urinary tract symptom presence: symptoms absent Weak urinary stream R39.12 CPT Codes Post Residual Void - PVR CPT Code: 49594-Cway Void Residual by ultrasound ([id number])
== END 2023-11-06 09:38 | disposition home or self-care (01) ==
PROVIDERS: PCP Physician Assistant; Visit Provider Urology
DX: R97.20 Elevated prostate specific antigen [PSA] (principal); N40.0 Benign prostatic hyperplasia without lower urinary tract symptoms; R39.12 Poor urinary stream; Z13.9 Encounter for screening, unspecified
CPT/HCPCS: 99214; G2211

== ENCOUNTER → 2023-11-06 08:34 | Outpatient (BNVA) | payer BC, SELFPAY | PROVIDERS: PCP Physician Assistant; Visit Provider Urology | DX: R97.20 Elevated prostate specific antigen [PSA] (principal); N40.1 Benign prostatic hyperplasia with lower urinary tract symptoms; R39.12 Poor urinary stream; N39.8 Other specified disorders of urinary system | CPT/HCPCS: 51798; 81003 ==

== ENCOUNTER 2023-12-12 13:16 | Outpatient (AMB) | payer BC, SELFPAY ==
--- NOTE | 2023-12-12 13:17 | MHC.OFFVIS ---
Vital Signs 12/12/23 13:25 Height 5 ft 11 in Weight 218 lb 11.177 oz BMI 30.5 BP 118/74 Blood Pressure Location Lt brachial Position Sitting Pulse 88 Pulse Source Pulse Oximeter Pulse Oximetry (%) 95 Oxygen Delivery Method Room Air Intake Visit Reasons: Colonoscopy Screening Intake Note: Ta presents in office today for a colo scrn. CC; Pt reports that he has had multiple colonoscopies in the past, pt reports his last colo sp was approximately 7 years ago. Pt denies any significant sx or concerns at this time. PCP recommended a routine colo sp based on age and time since last colo sp. Concession Manager Required: No Allergies cephalexin [Keflex] Allergy (Unknown, Verified 12/12/23 13:22) rash niacin [Niaspan Extended-Release] Allergy (Unknown, Verified 12/12/23 13:22) Rash Statins Support Allergy (Unknown, Verified 12/12/23 13:22) Rash HPI HPI Colonoscopy Screening: Details: 63-year-old male here for preprocedural meeting to discuss a screening colonoscopy. He is referred by Brooks Martinez of [facility] primary care. PMX Hypertension High cholesterol Elevated PSA Prostatitis Polyarthralgias BPH Osteoarthritis of the knees * SURGICAL HISTORY Left knee arthroscopy Left TKR Nasal surgery septoplasty Back surgery lumbar discectomy Laparoscopic hernia repair left inguinal Sigmoid perf s/p tics closed not removed * ALLERGIES Keflex - hives Niacin - hives Statins - arthralgias * [facility]: Laboratory Tests 08/12/23 07:57 Estimated GFR > 60 Total Bilirubin 0.5 AST 24 ALT 47 H Alkaline Phosphatase 103 TODAY'S VISIT His last colonoscopy was 6-7 years ago a at a [facility] affiliate, he is unsure if there was a polyp. I can not find his procedure under the [facility] website. He liked Moviprep, but it does not appear that his insurance covers this. He denies any bowel or upper stomach problems.. He denies any cardiac or respiratory problems. There are no prior problems with anesthesia or sedation. No ID problems. He is unsure if he had a prior polyps, no known FHX of crc or polyps. 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 Cognitive needs: No Hearing needs: No Vision needs: Yes (glasses) Review of Systems Const Denies fatigue, Denies fever(s), Denies night sweats, Denies poor appetite and Denies weight loss ENT Reports Normal hearing present, Denies dental pain, Denies dysphagia, Denies hearing loss, Denies mouth pain, Denies odynophagia, Denies throat swelling, Denies tongue swelling and Reports other (Dentition adequate) Card Reports no additional complaints Resp Reports no additional complaints GI Details: Denies abdominal pain, Denies melena, Denies bloating, Denies hematochezia, Denies constipation, Denies GI cramping, Denies dysphagia, Denies excessive flatus, Denies early satiety, Denies heartburn, Denies diarrhea, Denies nausea, Denies odynophagia, Denies vomiting and Denies hematemesis Skin/Breast Denies pruritus, Denies lesions, Denies rash and Denies jaundice Neuro Reports Normal hearing present and Denies Abnormal speech present Endo Denies fatigue Aller/Immun Denies throat swelling and Denies tongue swelling Physical Exam Vital Signs: Last Vital Signs Pulse 88 12/12/23 13:25 BP 118/74 12/12/23 13:25 Pulse Ox 95 12/12/23 13:25 Oxygen Delivery Method Room Air 12/12/23 13:25 BMI result Body Mass Index 30.5 Const General: cooperative, no acute distress, well developed and well groomed Nutritional Appearance: well nourished and obese Orientation/consciousness: oriented to person, oriented to place and oriented to time Limitations: No language barrier HEENT Head: Yes normocephalic and Yes atraumatic Eyes General: appearance normal, both eyes and all related structures Pupils: Equal, round and reactive pupils present Neck Neck: Yes normal visual inspection and Yes no lymphadenopathy Thyroid: Thyroid normal Resp Effort & Inspection: normal respiratory effort and able to speak in complete sentences Auscultation: clear to auscultation bilaterally Cardio Rate: regular rate Rhythm: regular rhythm Heart sounds: Normal, physiologic split S2 sound present Peripheral pulses: radial pulses present and posterior tibial pulses present GI Inspection: No distended, No Abdominal panniculus present and Yes obesity Palpation (GI): Soft to palpation, nontender, no guarding, not rigid and No hepatosplenomegaly present Percussion: Yes normal to percussion Auscultation: normal bowel sounds Rectal Exam - Male: Yes deferred Skin General skin exam: no rashes or lesions noted, turgor normal, skin not dry, no jaundice, No spider nevi and no striae Rashes: no rashes Nails: normal Neuro General: oriented to person, oriented to place and oriented to time Cranial nerves: Yes Equal, round and reactive pupils present and Yes Normal hearing present Speech: No Abnormal speech present Extrem General: Yes normal to inspection, No clubbing, No cyanosis and No edema Psych Appearance: grossly normal and well kempt Mental Status: mental status grossly normal Speech and movement: Normal speech and movement present Affect: normal affect Attitude: cooperative Thought process: Normal thought process present and not confabulating Thought content: Normal thought content present Insight: Fair insight present (Psych) and Limited insight present (Psych) Judgement: Fair judgement present (Psych) and Limited judgement present (Psych) Assessment & Plan Assessment & Plan (1) Preop examination: Code(s): Z01.818 - Encounter for other preprocedural examination Category: Medical Plan His last colonoscopy was 6-7 years ago a at a [facility] affiliate, he is unsure if there was a polyp. I can not find his procedure under the [facility] website. He liked Moviprep, but it does not appear that his insurance covers this. He denies any bowel or upper stomach problems.. He denies any cardiac or respiratory problems. There are no prior problems with anesthesia or sedation. No ID problems. He is unsure if he had a prior polyps, no known FHX of crc or polyps. Orders: Orders Colonoscopy - GI Use Only Today Z01.818 - Encounter for other preprocedural examination Medications: New peg 3350-electrolytes 236-22.74-6.74 -5.86 gram (Golytely) until fecal effluent is clear; do not exceed a total volume of 2,000 mL 240 mL PO Q10M 4,000 mL 0RF 1 day Z12.11 - Encounter for screening for malignant neoplasm of colon bisacodyl (Dulcolax (bisacodyl)) 10 mg (2 x 5 mg) PO BEDTIME 4 tabs 0RF 2 days Coding Level of Care Code New Pt Level 3 (02790) Diagnoses Preop examination Z01.818
[2023-12-12 13:25] VITALS: BP 118/74; PULSE 88; O2SAT 95; BMI 30.5
== END 2023-12-12 13:43 | disposition home or self-care (01) ==
PROVIDERS: PCP Physician Assistant; Visit Provider Nurse Practitioner
DX: Z01.818 Encounter for other preprocedural examination (principal); Z12.11 Encounter for screening for malignant neoplasm of colon
CPT/HCPCS: S0285

== ENCOUNTER → 2023-12-12 13:16 | Outpatient (BNVA) | payer BC, SELFPAY | PROVIDERS: PCP Physician Assistant; Visit Provider Nurse Practitioner ==

== ENCOUNTER 2024-01-28 08:45 | Outpatient (AMB) | payer BC, SELFPAY ==
--- NOTE | 2024-01-28 09:11 | MHC.PC.OV ---
Vital Signs 01/28/24 09:12 Height 5 ft 11 in Weight 215 lb 2 oz BMI 30.0 BP 120/70 Blood Pressure Location Lt brachial Position Sitting Pulse 78 Pulse Source Pulse Oximeter Pulse Oximetry (%) 95 Oxygen Delivery Method Room Air Intake Visit Reasons: f/u HTN/ HLD Intake Note: Patient is here to follow up on HTN, HLD. Teacher Education Instructor Required: No Shingle Bolt Cutter: Not Required per policy Accompanied by: Self / Same As Patient Allergies cephalexin [Keflex] Allergy (Unknown, Verified 01/28/24 09:17) rash niacin [Niaspan Extended-Release] Allergy (Unknown, Verified 01/28/24 09:17) Rash Statins Support Allergy (Unknown, Verified 01/28/24 09:17) Rash Medication List - Last Reconciled 01/28/24 by Brooks Martinez PA-C amoxicillin 500 mg PO Q8H bisacodyl (Dulcolax (bisacodyl)) 10 mg (2 x 5 mg) PO BEDTIME 2 days diclofenac sodium 75 mg PO BID 30 days ezetimibe 10 mg PO DAILY 90 days losartan-hydrochlorothiazide 50-12.5 mg 1 tab PO DAILY 90 days peg 3350-electrolytes 236-22.74-6.74 -5.86 gram (Golytely) 240 mL PO Q10M 1 day pravastatin 10 mg PO DAILY tamsulosin 0.4 mg PO BID Tobacco use date assessed: 01/28/24 Dental Screening Dental Screen Date: 07/30/23 HPI f/u HTN/ HLD HPI Details Patient is a 63-year-old male here today for a visit.? Patient is status post total knee arthroplasty.? Patient has a past medical history significant for hypertension, hyperlipidemia, knee osteoarthritis. Concern--> reports having intermittent episodes of left lower abdominal quadrant pain. He does take Tums and does report dark stools though returns back to [place] after a few days. Of note has hernia surgery with mesh repair in his left lower abdominal quadrant Does have upcoming colonoscopy and will wait until colonoscopy done to consider a CT abdomen pelvis. Elevated PSA: Now followed by [facility]. Was treated with antibiotics due to positive E coli urinalysis/culture. PSA has reduced to normal range. He is due for cystoscopy in the next few months . Hypertension:? Blood pressure acceptable today in office. Continues losartan hydrochlorothiazide. .. Hyperlipidemia- patient continues on low-dose statin along with ezetimibe therapy with good effect. Most recent lipid panel acceptable with LDL at 104 Microbiology 09/24/23 14:02 Urine clean catch - Urine amor top Urine Culture - Final Escherichia coli Laboratory Tests 04/11/22 11/18/22 08/12/23 16:13 15:43 07:57 Creatinine 0.64 Cholesterol 184 174 192 LDL Cholesterol, C alc 84 117 H Prostate Specific Ag 2.07 PSA Screen 1.58 6.30 H Total PSA 10/30/23 07:51 Creatinine Cholesterol LDL Cholesterol, C alc Prostate Specific Ag PSA Screen Total PSA 2.71 PFSH Surgical History H/O colonoscopy S/P left knee arthroscopy S/P nasal surgery History of back surgery S/P laparoscopic hernia repair Social History Housing: Condominium Alcohol intake: current Alcohol intake frequency: holidays/special occasions only Patient Tobacco Use Status: Former Tobacco user e-Cigarette/Vaping Use: Never Used Second Hand Smoke Exposure: Yes Substance Use Type: Marijuana service: No Current occupational status: retired 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 Ta Sanchez, Alivia Islas, Tony Richardson and colleagues, with an educational lucy from [email or web address]. Review of Systems Const Denies headache(s) Eyes Denies loss of vision ENT Denies vertigo, Denies dizziness, Denies headache(s) and Denies sore throat Card Denies chest pain, Denies leg edema and Denies lightheadedness Resp Denies cough, Denies hemoptysis and Denies wheezing GI Reports abdominal pain, Denies melena, Denies constipation, Denies diarrhea and Denies vomiting Denies dysuria, Denies urinary frequency and Denies urinary urgency Musc Denies arthralgias, Denies joint swelling, Denies numbness and Denies tingling Neuro Denies Abnormal speech present, Denies behavioral changes, Denies vertigo, Denies dizziness, Denies headache(s), Denies loss of vision, Denies memory loss, Denies numbness and Denies tingling Psych Denies anxiety, Denies behavioral changes, Denies depression, Denies memory loss and Denies panic attacks Yinka/Lymph Denies easy bleeding and Denies easy bruising Aller/Immun Denies wheezing Physical exam (Primary Care) Vital Signs: Last Vital Signs Pulse 78 01/28/24 09:12 BP 120/70 01/28/24 09:12 Pulse Ox 95 01/28/24 09:12 Oxygen Delivery Method Room Air 01/28/24 09:12 BMI result Body Mass Index 30.0 Tobacco/Smoking Status: Tobacco use Status Tobacco use date assessed 01/28/24 01/28/24 09:15 Patient Tobacco Use Status Former Tobacco user 01/28/24 09:15 e-Cigarette/Vaping Use Never Used 01/28/24 09:15 Thrive Assessment: Date of Thrive Assessment Date Thrive assessed 07/30/23 01/28/24 09:15 Const General: healthy appearing, no acute distress, alert and awake Nutritional Appearance: well nourished Orientation/consciousness: oriented to person, oriented to place and oriented to time HENMT Ears: TM's normal bilaterally General nose exam: Normal nasal mucous membranes and turbinates present Eyes Conjunctivae: conjunctivae normal Sclerae: sclerae normal Pupils: Equal, round and reactive pupils present Neck Neck: Yes no lymphadenopathy and Yes no JVD Thyroid: Thyroid normal Carotids: no bruits Resp Effort & Inspection: normal respiratory effort and not tachypneic Auscultation: no crackles, no rales, no rhonchi and no wheezes Cardio Rate: regular rate Rhythm: regular rhythm Heart sounds: no murmurs and normal S1 and S2 GI Palpation (GI): Soft to palpation, nontender, no hepatomegaly and no splenomegaly Auscultation: normal bowel sounds Skin General skin exam: no rashes or lesions noted and dry skin Neuro General: oriented to person, oriented to place and oriented to time Cranial nerves: Yes Equal, round and reactive pupils present Speech: No Abnormal speech present Gait exam (Neuro): Normal gait present Motor exam (neuro): no tremor noted Extrem Right upper extremity: full ROM Left upper extremity: full ROM Right lower extremity: full ROM; no edema Left lower extremity: full ROM; no edema Psych Mental Status: mental status grossly normal Speech and movement: Normal speech and movement present Affect: normal affect Attitude: cooperative Thought process: Normal thought process present Assessment and Plan Assessment & Plan (1) HTN (hypertension): Code(s): I10 - Essential (primary) hypertension Qualifiers: Hypertension type: essential hypertension Qualified Code(s): I10 - Essential (primary) hypertension Plan: Patient's blood pressure acceptable today in office, will continue his current antihypertensive medication with goal blood pressure to remain below 140/90 (2) HLD (hyperlipidemia): Code(s): E78.5 - Hyperlipidemia, unspecified Qualifiers: Hyperlipidemia type: mixed hyperlipidemia Qualified Code(s): E78.2 - Mixed hyperlipidemia Plan: Patient's most recent lipid panel showing acceptable readings. Will continue current dose of high cholesterol medication. Goal LDL to be below 130 (3) Elevated PSA: Code(s): R97.20 - Elevated prostate specific antigen [PSA] Plan: Followed by [facility]. He is due for cystoscopy in near future. His most recent PSA reduced after taking antibiotics. Orders: Orders Complete Blood Count no Diff Today E78.2 - Mixed hyperlipidemia Microalbumin, Random (w Creat) Today I10 - Essential (primary) hypertension Comprehensive [place]. Panel Fast Today E78.2 - Mixed hyperlipidemia Lipid Panel Today E78.2 - Mixed hyperlipidemia Medications: Refilled pravastatin 10 mg PO DAILY 90 tabs 3RF E78.2 - Mixed hyperlipidemia Patient Instructions: Goal: Blood pressure to be below 140/90 Barriers: Adherence to physical activity and healthy eating habits Coding Level of Care Code Est Pt Level 4 (89539) Diagnoses Essential hypertension I10 Hypertension type: essential hypertension Mixed hyperlipidemia E78.2 Hyperlipidemia type: mixed hyperlipidemia Elevated PSA R97.20
[2024-01-28 09:12] VITALS: BP 120/70; PULSE 78; O2SAT 95
== END 2024-01-28 09:31 | disposition home or self-care (01) ==
PROVIDERS: PCP Physician Assistant; Visit Provider Physician Assistant
DX: I10 Essential (primary) hypertension (principal); E78.2 Mixed hyperlipidemia; R97.20 Elevated prostate specific antigen [PSA]
CPT/HCPCS: 99214

== ENCOUNTER 2024-04-28 09:08 | Outpatient (REF) | payer BC, SELFPAY ==
[2024-04-28 10:33] LABS: Hematocrit 45.1 % (42.0-52.0); Hemoglobin 15.2 g/dl (14.0-18.0); Mean Corpuscular HGB Conc 33.7 g/dl (31.0-36.0); Mean Corpuscular Hemoglobin 29.9 pg (27.0-33.0); Mean Corpuscular Volume 88.8 fL (80.0-98.0); Mean Platelet Volume 11.8 fL (9.4-12.4); Platelet Count 225 X10*3/uL (160-400); Red Blood Count 5.08 X10*6/uL (4.60-5.80); White Blood Count 8.7 X10*3/uL (4.8-10.8)
[2024-04-28 11:18] LABS: Creatinine Urine 108.53 mg/dL; Microalbum/Creatinine Ratio Ur 9.2 ug/mg cr (<30)
[2024-04-28 11:26] LABS: Alanine Aminotransferase 59 U/L (0-40); Albumin Level 4.3 g/dL (3.5-5.0); Alkaline Phosphatase 88 U/L (39-117); Anion Gap 13 (12-20); Aspartate Amino Transferase 35 U/L (5-37); Bilirubin Total 0.4 mg/dL (0.0-1.0); Blood Urea Nitrogen 18 mg/dL (9-16); Calcium 9.8 mg/dL (8.4-10.2); Carbon Dioxide 27 mmol/L (22-29); Chloride 109 mmol/L (96-108); Cholesterol 173 mg/dL (<200); Estimated Glomerular Filt Rate > 60; Glucose Fasting 106 mg/dL (60-99); HDL Cholesterol 48 mg/dL (>40); LDL Cholesterol Calculated 96 mg/dL (<100); Potassium 3.6 mmol/L (3.3-5.1); Sodium 145 mmol/L (135-145); Total Protein 7.2 g/dL (6.5-8.0); Triglycerides 149 mg/dL (<150)
== END 2024-04-28 09:09 | disposition home or self-care (01) ==
LOC: HO.LAB 09:08
PROVIDERS: PCP Physician Assistant; Visit Provider Urology
DX: E78.2 Mixed hyperlipidemia (principal); I10 Essential (primary) hypertension
CPT/HCPCS: 36415; 80053; 80061; 82043; 82570; 85027

== ENCOUNTER 2024-05-06 07:20 | Day surgery (SDC) | payer BC, SELFPAY ==
--- NOTE | 2024-05-05 10:13 | HO.ANESPROP2 ---
Documented by User: Juana Meek NP 05/05/24 10:14 HPI - Anesthesia Eval Consult details Narrative: 63yo M for Colonoscopy PMFSH Active Problems Active Problems: All Active Problems Weak urinary stream (Acute) Elevated PSA (Acute) Colon cancer screening (Acute) S/P left knee arthroscopy (Acute) Osteoarthritis, knee (Acute) Atypical chest pain (Acute) Prostatitis (Acute) Annual physical exam (Acute) HTN (hypertension) (Acute) HLD (hyperlipidemia) (Acute) BPH (benign prostatic hyperplasia) (Acute) Past Medical History Medical History BPH (benign prostatic hyperplasia) HLD (hyperlipidemia) HTN (hypertension) Surgical History Surgical History H/O colonoscopy S/P left knee arthroscopy S/P nasal surgery History of back surgery S/P laparoscopic hernia repair Social History [facility] Alcohol intake: current Alcohol intake frequency: holidays/special occasions only Patient Tobacco Use Status: Former Tobacco user e-Cigarette/Vaping Use: Never Used Second Hand Smoke Exposure: Yes Use of substances other than those prescribed or required for medical reasons: Yes Substance Use Type: Marijuana Substance Use Type Other:: Daily, last smoked 05/05 Are you DNR?: No Advance Directives: No Advance Directives Information Provided: Yes service: No Current occupational status: 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 Cognitive needs: No Hearing needs: No Vision needs: Yes (glasses) Meds Allergies Allergy/AdvReac Type Severity Reaction Status Date / Time cephalexin [Keflex] Allergy Unknown rash Verified 01/28/24 09:17 niacin Allergy Unknown Rash Verified 01/28/24 09:17 [Niaspan Extended-Release] Statins Support Allergy Unknown Rash Verified 01/28/24 09:17 Exam Height,Weight and Vital Signs: Height 5 ft 11 in Weight 97.522 kg Assessment and Plan Assessment Anesthesia Assessment: Chart Reviewed Documented by User: Marissa Rodriguez MD 05/06/24 08:56 [facility] Past Medical History Medical History BPH (benign prostatic hyperplasia) HLD (hyperlipidemia) HTN (hypertension) Family History Family history of problems with anesthesia: No Surgical History Surgical History H/O colonoscopy S/P left knee arthroscopy S/P nasal surgery History of back surgery S/P laparoscopic hernia repair History of Problems with Anesthesia: No Social History Social History Housing: [facility] Alcohol intake: current Alcohol intake frequency: holidays/special occasions only Patient Tobacco Use Status: Former Tobacco user e-Cigarette/Vaping Use: Never Used Second Hand Smoke Exposure: Yes Use of substances other than those prescribed or required for medical reasons: Yes Substance Use Type: Marijuana Substance Use Type Other:: Daily, last smoked 05/05 Are you DNR?: No Advance Directives: No Advance Directives Information Provided: Yes service: No 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 occupational status: 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 Cognitive needs: No Hearing needs: No Vision needs: Yes (glasses) Meds Allergies Allergy/AdvReac Type Severity Reaction Status Date / Time cephalexin [Keflex] Allergy Unknown rash Verified 01/28/24 09:17 niacin Allergy Unknown Rash Verified 01/28/24 09:17 [Niaspan Extended-Release] Statins Support Allergy Unknown Rash Verified 01/28/24 09:17 Exam Airway Mallampati Class: II TM Dist: >3cm Neck ROM: Full Heart: rrr Lungs: cta Assessment and Plan Assessment Anesthesia Assessment: Anesthesia Plan Discussed Final Anesthetic Review Family History of Problems with Anesthesia: No History of Problems with Anesthesia: No NPO: Yes ASA Class: II Final Preanesthetic Review: No Changes in Pt Med Stat, Meds/Allgs Chart Reviewed, Consent Obtained/Reviewed and Anes Risks/Benef Reviewed Patient Risk: Low Procedure Risk: Low Anesthetic Plan Anesthetic Plan: MAC: Disposition: Standard PACU
[2024-05-06 08:25] VITALS: BP 134/82; PULSE 74; RESP 16; TEMP 36.6; O2SAT 98
[2024-05-06] MEDS: Lactated Ringers 1,000 ML 100 ML IVCONT (08:43)
--- NOTE | 2024-05-06 09:12 | P.HPSUR_ITS ---
Pre-Procedural Eval Section A - 24 Hr Update-Section A only Date of Service: 05/06/24 Section B - Complete if H&P > 30 days Chief Complaint: Encounter for screening for malignant neoplasm of Relevant Family History (Specify if Yes): No Relevant Social History: None Present Medications: see Short Stay Collaborative assessment Medical History: Significant History (BPH (benign prostatic hyperplasia) HLD ( hyperlipidemia) HTN (hypertension)) History of Previous Operations: Relevant previous surgery/procedure and date(s) (H/O colonoscopy S/P left knee arthroscopy S/P nasal surgery History of back surgery S/P laparoscopic hernia repair) Allergies: Allergies Allergy/AdvReac Type Severity Reaction Status Date / Time cephalexin [Keflex] Allergy Unknown rash Verified 01/28/24 09:17 niacin Allergy Unknown Rash Verified 01/28/24 09:17 [Niaspan Extended-Release] Statins Support Allergy Unknown Rash Verified 01/28/24 09:17 Review of Systems Sugical H&P ROS: Negative: Constitution, Cardiovascular, Respiratory, Neurological, Psychiatric, Hem-Onc, Allergic/Immunologic, Gastrointestinal, Genitourinary, Musculoskeletal, Integumentary, Endocrine and Eyes/Ears/Nose/Throat Exam Surgical H&P Exam: Normal: HEENT, Normal: Heart, Normal: Lungs, Normal: Extremities, Normal: Abdomen, Normal: Skin and Normal: Neurological Plan Diagnosis/Plan: Unchanged I have reviewed the history and physical and performed a pertinent physical examination on my patient. No changes have occurred unless specified. Time Spent With Patient Time: Total time managing care of this patient today ____ minutes.
--- NOTE | 2024-05-06 09:50 | HO.OPN-COLON ---
Colonoscopy Operative Note Operative Note Date of Service: 05/06/24 Narrative: Operative Information Procedure Description: Colonoscopy Indication: screening, hx of colon polyps Anesthesia: MAC COLONOSCOPY Instrument: Olympus variable stiffness pediatric scope 190L Colonoscopy Monitoring: Vital signs and clinical assessment, continuous EKG monitoring, Pulse oximetry, Carbon Dioxide monitoring and blood pressure monitoring were done throughout the procedure. Colon withdrawal time was 12 minutes. Procedure: The patient was placed in the left lateral decubitis position and pre-procedure medications were administered. After a digital rectal examination of the ano-rectum, the video colonoscope was inserted into the rectum and advanced through the colon to the cecum/TI. The colonoscope was slowly withdrawn in a retrograde panoramic fashion and the colon mucosa was carefully examined including a retroflexed view of the rectum. Findings and interventions are described below. Procedure Difficulty: easy Findings: Terminal Ileum-normal Cecum:normal Ascending Colon: mild diverticulosis Transverse Colon -normal Descending Colon:normal Sigmoid Colon: moderate severe diverticulosis with scattered erythema, might be consistent with SCAD, bx taken Rectum: Retroflexion with small internal hemorrhoids seen, grade I Anorectum - normal Intervention: cold forceps biopsy Colon preparation: Mcconnell Bowel Preparation Scale Right colon; 2 Transverse colon: 2 Left colon; 2 (0 = Unprepared colon segment with mucosa not seen due to solid stool that cannot be cleared. 1 = Portion of mucosa of the colon segment seen, but other areas of the colon segment not well seen due to staining, residual stool and/or opaque liquid. 2 = Minor amount of residual staining, small fragments of stool and/or opaque liquid, but mucosa of colon segment seen well. 3 = Entire mucosa of colon segment seen well with no residual staining, small fragments of stool or opaque liquid) Impression and Post Procedure Diagnosis: diverticulosis with possible SCAD internal hemorrhoids Plan: High fiber diet leaflet Avoid straining at stool, epsom salts and sitz bath, anusol supps or cream Repeat Colonoscopy in 5 years due to hx of unknown polyps in past or earlier if clinically indicated Above findings were reviewed with the patient and relevant handouts were provided if indicated.
[2024-05-06 09:55] VITALS: BP 84/55; PULSE 74; RESP 18; TEMP 36.1; O2SAT 97
[2024-05-06 10:10] VITALS: BP 132/97; PULSE 77; RESP 16; TEMP 36.1; O2SAT 97
== END 2024-05-06 11:13 | disposition home or self-care (01) ==
PROVIDERS: PCP Physician Assistant; Visit Provider Internal Medicine Gastroenterology
PROC: 0DJD8ZZ Inspection of Lower Intestinal Tract, Via Natural or Artificial Opening Endoscopic (ICD-10-PCS; CPT 45378; principal; 2024-05-06 09:50)
DX: Z12.11 Encounter for screening for malignant neoplasm of colon (principal); K52.9 Noninfective gastroenteritis and colitis, unspecified; K57.30 Diverticulosis of large intestine without perforation or abscess without bleeding; K64.0 First degree hemorrhoids; Z86.0101 Personal history of adenomatous and serrated colon polyps; I10 Essential (primary) hypertension; E78.00 Pure hypercholesterolemia, unspecified; F12.90 Cannabis use, unspecified, uncomplicated; Z87.891 Personal history of nicotine dependence
CPT/HCPCS: 45380; 88305; J2003; J2704

== ENCOUNTER → 2024-05-06 07:20 | Outpatient (BNV) | payer BC, SELFPAY | PROVIDERS: PCP Physician Assistant; Visit Provider Internal Medicine Gastroenterology | DX: Z12.11 Encounter for screening for malignant neoplasm of colon (principal); Z86.0100 Personal history of colon polyps, unspecified; K57.90 Diverticulosis of intestine, part unspecified, without perforation or abscess without bleeding; K64.0 First degree hemorrhoids | CPT/HCPCS: 45380 ==

== ENCOUNTER 2024-05-07 14:11 | Outpatient (AMB) | payer BC, SELFPAY ==
--- NOTE | 2024-05-07 14:19 | A.OFFVIS_ITS ---
Intake Visit Reasons: cysto/PSA/PVR Intake Note: Patient is present for Cystoscopy/PSA/PVR Urology Medication:TAMSLOSIN Antibiotic Allergy:CEPHALEXIN Blood Thinner:NONE TODAY'S PVR: 0ML'S Lot:[id number] Exp:05/10/27 Coach Operator Required: No Allergies cephalexin [Keflex] Allergy (Unknown, Verified 05/07/24 14:21) rash niacin [Niaspan Extended-Release] Allergy (Unknown, Verified 05/07/24 14:21) Rash Statins Support Allergy (Unknown, Verified 05/07/24 14:21) Rash Medication List - Last Reconciled 05/08/24 by Elsie Beckman MD ezetimibe 10 mg PO DAILY 90 days losartan-hydrochlorothiazide 50-12.5 mg 1 tab PO DAILY 90 days pravastatin 10 mg PO DAILY tamsulosin 0.4 mg PO BID HPI Comments Details: 05/07/24--cystoscopy findings bilobar enlargement prominent median lobe no trabeculations noted patient will continue on tamsulosin discussed GreenLight laser may be beneficial if urinary symptoms worsen. PSA 10/30/23-2.71 ng/mL. Review of chart 11/06/2023 Ta is here for follow-up. He was initially seen on 09/24/2023 for elevated PSA. Urinalysis on 09/24/2023 was nitrite positive and was sent for culture. Discussed increasing tamsulosin from once a day to b.i.d.. Urine culture came back positive and he was treated with Bactrim. I have reviewed renal ultrasound performed 10/20/2023--enlarged prostate, question prostate nodule. Bladder-- Prevoid bladder volume is 165 mL. Postvoid bladder volume is 174 mL. The patient states that since increasing the tamsulosin to twice a day his urine flow has improved. In review of labs PSA on 08/12/2023 was 6.30. Repeat PSA 10/30/2023 is 2.71 which is likely improved due to treatment of UTI with antibiotics. Urinalysis-negative. Prostate Exam: Prostate is smooth no suspicious nodules palpated, mildly enlarged. PVR 79 mL. Will continue to monitor PSA and PVR. Tamsulosin b.i.d. Plan office cystoscopy on follow-up. 09/24/2023--Ta is a 63-year-old male who is here for new patient evaluation due to elevated PSA. The patient reports obstructive voiding symptoms, weak urinary flow with hesitancy. Denies dysuria or gross hematuria. I have discussed increasing tamsulosin to b.i.d. I have discussed PSA is a blood test, prostate specific antigen and is an enzyme secreted by the prostate gland. Elevated PSA may be due to multiple conditions including prostate inflammatory condition, enlarged prostate or prostate cancer. Urinalysis is nitrite positive. I will send urine for culture. Will await results of urine culture prior to starting antibiotics. Discussed repeat PSA. Will check renal/bladder ultrasound. 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 Cognitive needs: No Hearing needs: No Vision needs: Yes (glasses) Review of Systems Const All systems reviewed & are unremarkable except as noted in HPI and below Reports no additional complaints Eyes Reports no additional complaints ENT Reports no additional complaints Card Reports no additional complaints Resp Reports no additional complaints GI Reports no additional complaints Reports as per HPI Musc Reports no additional complaints Skin/Breast Reports system reviewed and no additional complaints, except as documented Neuro Reports no additional complaints Psych Reports no additional complaints Endo Reports no additional complaints Yinka/Lymph Reports no additional complaints Aller/Immun Reports no additional complaints Office Procedures Cystoscopy Consent Discussed risk and benefit or proposed procedure with the patient. Information consent for procedure given to the patient. Discussed technical aspects, risks, benefits and alternatives in full. Addressed all of the patient's questions and concerns regarding the procedure. The patient demonstrated knowledge and understanding. They wish to proceed with this procedure. Preparation The patient was prepped in the usual manner. A trust officer was present and in the room. Genitalia was prepped with betadine solution in a sterile manner. Lidocaine Jelly 2% was placed into the urethra and 16Fr flexible Olympus cystoscope was inserted into the meatus after adequate lubrication. Procedure Time out per protocol performed. Bladder Inspection Bladder Inspection: The bladder was inspected in its entirety with utilization retroflexion displaying: Tumor(s): no suspicious bladder lesions visualized Trabeculation: NA Mucosal Erthema: NA Orifices: normal shape and position Urethra: normal Cystoscopy findings: prostatic urethra bilober enlargement, prominent median lobe, bulbous urethra WNL, no suspicious bladder lesions visualized [id number] DISPOSABLE SCOPE URO-G FLEXIBLE SCOPE Procedure code (CPT) selection complete Post Void Residual Post Residual Void Post Void Residual (PVR): 0 [id number]-Ezzq Void Residual by ultrasound Office Meds lidocaine HCl 2 % mucosal jelly in applicator Performing Provider: Elsie Beckman MD Performing Location[facility] [place] [facility] Administered by: Mian Cote LPN on 05/07/24 14:43 Dose Route Admin Location Dispensed Lot Number Expiration Date [facility] Event Marketing Assistant 10 mL intra-urethral 10 mL naproxen 500 mg tablet Performing Provider: Elsie Beckman MD Performing Location: [facility] [place] [facility] Administered by: Mian Cote LPN on 05/07/24 14:43 Dose Route Admin Location Dispensed Lot Number Expiration Date [place] Event Marketing Assistant 500 mg PO 1 tab ciprofloxacin HCl 500 mg tablet Performing Provider: Elsie Beckman MD Performing Location: [facility] [place] [facility] Administered by: Mian Cote LPN on 05/07/24 14:43 Dose Route Admin Location Dispensed Lot Number Expiration Date [place] Event Marketing Assistant 500 mg PO 1 tab Results Reviewed Results Reviewed: Date of Service: 10/20/23 EXAMINATION: US RETROPERITONEAL COMPLETE (RENAL) CLINICAL INFORMATION: Elevated prostate-specific antigen (PSA). COMPARISON: Renal ultrasound 02/21/2016. TECHNIQUE: Real-time imaging of the kidneys and bladder. FINDINGS: RIGHT KIDNEY: 11.1 x 6.5 x 6.2 cm (SAG x AP x TRV). The kidney is normal in size, contour, and echogenicity. Renal cortical thickness is normal. No calculi or focal parenchymal lesions. No hydronephrosis. LEFT KIDNEY: 11.8 x 5.9 x 5.7 cm (SAG x AP x TRV). The kidney is normal in size, contour, and echogenicity. Renal cortical thickness is normal. No calculi or focal parenchymal lesions. No hydronephrosis. BLADDER: Well distended and normal. Bilateral ureteral jets are demonstrated. Prevoid bladder volume is 165 mL. Postvoid bladder volume is 174 mL. PROSTATE: There is a prostatic impression upon the bladder base. Some anterior nodularity is questioned. Prostate dimensions are 4.4 x 4.1 x 4.8 cm (volume 45.4 mL). IMPRESSION: 1. Unremarkable ultrasound appearance of the bilateral kidneys. 2. There is an increased postvoid residual volume. 3. There is prostatomegaly. A prostate nodule is questioned. Given the provided history of an elevated serum PSA level, consider further evaluation with prostate MRI. Assessment & Plan Assessment & Plan (1) Weak urinary stream: Comment: improved on flomax Code(s): R39.12 - Poor urinary stream Category: Medical (2) BPH loc w urin obs/LUTS: Code(s): N40.1 - Benign prostatic hyperplasia with lower urinary tract symptoms Category: Medical (3) Screening PSA (prostate specific antigen): Code(s): Z12.5 - Encounter for screening for malignant neoplasm of prostate Category: Medical Plan monitor PSA and PVR. Cont. Tamsulosin b.i.d. Orders: Orders AMB Urinalysis Automated 05/07/24 Z13.9 - Encounter for screening, unspecified AMB Cystoscopy 05/07/24 N41.9 - Inflammatory disease of prostate, unspecified, R39.12 - Poor urinary stream, R97.20 - Elevated prostate specific antigen [PSA] Patient Instructions: The patient had an opportunity to ask questions regarding treatment plan. The patient expressed understanding and agreement with the above treatment plan. The patient is aware they should contact our office by phone for worsening of their current condition or the appearance of new symptoms. Compliance is encouraged with any medications and followup testing that is ordered. It is a privilege to be allowed the opportunity to participate in the urologic care of your patient. If you have any questions or concerns regarding treatment for the above conditions please do not hesitate to contact me. The office telephone contact is [phone]. This note is constructed in part using voice recognition software. While every effort has been made to ensure accuracy top dyeing machine loader errors may have been included. Yours sincerely, Elsie Beckman MD Coding Level of Care Code Procedure Only Diagnoses Weak urinary stream R39.12 BPH loc w urin obs/LUTS N40.1 Screening PSA (prostate specific antigen) Z12.5 CPT Codes Cystoscopy - CPT: 09551-Ltfhhgkmmf ([id number]) Post Residual Void - PVR CPT Code: 79048-Ozlo Void Residual by ultrasound ([id number])
== END 2024-05-07 14:57 | disposition home or self-care (01) ==
LOC: HO.HUSH 14:12
PROVIDERS: PCP Physician Assistant; Visit Provider Urology
DX: R39.12 Poor urinary stream (principal); R97.20 Elevated prostate specific antigen [PSA]; N41.9 Inflammatory disease of prostate, unspecified
CPT/HCPCS: 52000

== ENCOUNTER → 2024-05-07 14:11 | Outpatient (BNVA) | payer BC, SELFPAY | PROVIDERS: PCP Physician Assistant; Visit Provider Urology | DX: N40.1 Benign prostatic hyperplasia with lower urinary tract symptoms (principal); N13.8 Other obstructive and reflux uropathy; R39.12 Poor urinary stream | CPT/HCPCS: 51798; 52000 ==

== ENCOUNTER 2024-08-02 09:18 | Outpatient (AMB) | payer BC, SELFPAY ==
[2024-08-02 09:42] VITALS: BP 132/82; PULSE 74; TEMP -13.4; TEMP 7.8; O2SAT 98; BMI 30.4
--- NOTE | 2024-08-02 09:42 | MHC.PC.OV ---
Vital Signs 08/02/24 09:42 Height 5 ft 11 in Weight 218 lb BMI 30.4 BP 132/82 Blood Pressure Location Lt brachial Position Sitting Pulse 74 Pulse Source Pulse Oximeter Temp 7.8 F L Temp Source Oral Pulse Oximetry (%) 98 Oxygen Delivery Method Room Air Intake Visit Reasons: Annual Exam Intake Note: Patient is here today for a physical. Bingo Manager Required: No Accompanied by: Self / Same As Patient Allergies cephalexin [Keflex] Allergy (Unknown, Verified 08/02/24 10:03) rash niacin [Niaspan Extended-Release] Allergy (Unknown, Verified 08/02/24 10:03) Rash Statins Support Allergy (Unknown, Verified 08/02/24 10:03) Rash Medication List - Last Reconciled 08/02/24 by Brooks Martinez PA-C ezetimibe 10 mg PO DAILY 90 days losartan-hydrochlorothiazide 50-12.5 mg 1 tab PO DAILY 90 days pravastatin 10 mg PO DAILY tamsulosin 0.4 mg PO BID Tobacco use date assessed: 08/02/24 Dental Screening Dental Screen Date: 08/02/24 Did you have a dental visit in the last 12 months?: Yes Did you have a dental problem in the last 6 months where you did not have access to dental care?: No Was dental information given to patient?: Patient has dentist HPI Annual Exam HPI Details Patient is a 63-year-old male here today for a visit.? Patient is status post total knee arthroplasty.? Patient has a past medical history significant for hypertension, hyperlipidemia, knee osteoarthritis. Concern--> having tinnitus in both ears over the last several months. He reports he would like further evaluation of his tinnitus. Of note does take aspirin a few times a week due to migraine headaches and does understand this could be a side effect of aspirin therapy. Elevated PSA: Now followed by [facility]. PSA has reduced to normal range. He reports he is due for GreenLight procedure to help him with his urinary flow. Otherwise continues 0.8 mg of Flomax daily . Hypertension:? Blood pressure acceptable today in office. Continues losartan hydrochlorothiazide. .. Hyperlipidemia- patient continues on low-dose statin along with ezetimibe therapy with good effect. Most recent lipid panel acceptable with LDL at 104 Vaccines:? Up-to-date tetanus., UTD with COVID vac, up-to-date with shingles vaccine. Declines flu ? .. ? Colonoscopy done in 2023- repeat 5 years due to history of polyps Laboratory Tests 04/28/24 04/28/24 09:35 09:39 Hgb 15.2 Cholesterol 173 LDL Cholesterol, C alc 96 Urine Microalbumin 10.0 PFSH Medical History HTN (hypertension) HLD (hyperlipidemia) BPH (benign prostatic hyperplasia) Surgical History H/O colonoscopy S/P left knee arthroscopy S/P nasal surgery History of back surgery S/P laparoscopic hernia repair [facility] Alcohol intake: current Alcohol intake frequency: holidays/special occasions only Patient Tobacco Use Status: Former Tobacco user e-Cigarette/Vaping Use: Never Used Second Hand Smoke Exposure: Yes Substance Use Type: Marijuana service: No Current occupational status: retired 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 1. Little interest or pleasure in doing things: not at all 2. Feeling down, depressed, or hopeless: not at all 3. Trouble falling or staying asleep, or sleeping too much: not at all 4. Feeling tired or having little energy: not at all 5. Poor appetite or overeating: not at all 6. Feeling bad about yourself - or that you are a failure or have let yourself or your family down: not at all 7. Trouble concentrating on things, such as reading the newspaper or watching television: not at all 8. Moving or speaking so slowly that other people could have noticed. Or the opposite - being so fidgety or restless that you have been moving around a lot more than usual: not at all 9. Thoughts that you would be better off or of hurting yourself in some way: not at all Total score: 0 Depression Screening Interpretation: Negative Depression Screening Done: Yes 28571 - PHQ-9 Billing: Yes Source: Developed by Drs. Ta Sanchez, Alivia Islas, Tony Richardson and colleagues, with an educational lucy from [employer]. Thrive Questionnaire Date Thrive assessed: 08/02/24 I am a: Patient What is your living situation today?: I have a steady place to live Within the past 12 months, did the food you bought not last and you didn't have the money to get more?: Never true Within the past 12 months, did you worry whether your food would run out before you got money to buy more?: Never true Do you have trouble paying for medicines?: No Do you have trouble getting transportation to medical appointments?: No Do you have trouble paying your heating and electricity bill?: No Do you have trouble taking care of your child, family member or friend?: No Do you have trouble with day-to-day activities such as bathing, preparing meals, shopping, managing finances, etc.?: No Are you currently unemployed and looking for a job?: No Are you interested in more education?: No Please select the resources that you would like help with: None Currently or been in a relationship where the following occur: No concerns reported THRIVE Score: 0 AUDIT C Alcohol Use Questionnaire (AUDIT-C) 1. How often do you have a drink containing alcohol?: Monthly or less 2. How many drinks containing alcohol do you have on a typical day when you are drinking?: 1 or 2 3. How often do you have six or more drinks on one occasion?: Never Total Score: 1 MAXIMINO-7 AMB Questionnaire MAXIMINO-7 Date MAXIMINO - 7 assessed: 08/02/24 Feeling nervous, anxious, or on edge: 0 = Not at all Not being able to stop or control worryin = Not at all Worrying too much about different things: 0 = Not at all Trouble relaxin = Not at all Being so restless that it is hard to sit still: 0 = Not at all Becoming easily annoyed or irritable: 0 = Not at all Feeling afraid as if something awful might happen: 0 = Not at all Total MAXIMINO-7 score (0-4 normal; 5-9 mild; 10-14 moderate; 15-21 severe): 0 Source: Developed by Alivia Ruiz, Tony Richardson and colleagues, with an educational lucy from [employer]. MAXIMINO-7 Assessment Billing MAXIMINO-7 Assessment Tool: MAXIMINO-7 Assessment 28400 Review of Systems Const Denies body aches, Denies chills, Denies excessive sweating, Denies fatigue, Denies fever(s) and Denies headache(s) Eyes Denies blurry vision ENT Denies dysphagia, Denies vertigo, Denies dizziness, Denies headache(s), Denies hearing loss and Denies tinnitus Card Denies chest pain, Denies chest pain with activity, Denies syncope, Denies irregular heart rhythm and Denies dyspnea Resp Denies chest congestion, Denies cough, Denies hemoptysis, Denies dyspnea and Denies wheezing GI Denies abdominal pain, Denies melena, Denies hematochezia, Denies coffee ground emesis, Denies dysphagia, Denies diarrhea, Denies nausea and Denies vomiting Denies difficulty urinating, Denies dysuria, Denies urinary frequency, Denies urinary hesitancy and Denies urinary urgency Musc Denies arthralgias, Denies limited range of motion, Denies muscle cramps and Denies muscle weakness Skin/Breast Denies rash and Denies skin ulcer Neuro Denies Abnormal speech present, Denies confusion, Denies vertigo, Denies dizziness, Denies syncope, Denies headache(s), Denies memory loss and Denies seizure-like activity Psych Denies anxiety, Denies confusion, Denies depression, Denies memory loss, Denies panic attacks and Denies paranoia Endo Denies excessive sweating, Denies fatigue, Denies flushing, Denies polydipsia and Denies polyuria Aller/Immun Denies wheezing Physical exam (Primary Care) Vital Signs: Last Vital Signs Temp 7.8 F L 08/02/24 09:42 Pulse 74 08/02/24 09:42 BP 132/82 08/02/24 09:42 Pulse Ox 98 08/02/24 09:42 Oxygen Delivery Method Room Air 08/02/24 09:42 BMI result Body Mass Index 30.4 Tobacco/Smoking Status: Tobacco use Status Tobacco use date assessed 08/02/24 08/02/24 09:49 Patient Tobacco Use Status Former Tobacco user 08/02/24 10:08 e-Cigarette/Vaping Use Never Used 08/02/24 10:08 PHQ-9: PHQ-9 Score PHQ-9: Total score 0 08/02/24 10:05 Depression Screening Interpretation: Negative Thrive Assessment: Date of Thrive Assessment Date Thrive assessed 08/02/24 08/02/24 09:49 Currently or been in a relationship where the following occur: No concerns reported Const General: cooperative, comfortable, no acute distress, alert and awake; No confusion Orientation/consciousness: oriented to person, oriented to place, patient oriented x3 and No confusion HENMT Head: Yes normocephalic Ears: external ears normal and TM's normal bilaterally Face and sinus: No sinus tenderness Mouth: Normal oral and palatal mucosa present and tongue normal Teeth and gingiva: dentition normal and gingiva normal Throat: Yes posterior oropharynx normal, Yes tonsils normal and Yes uvula midline Eyes Conjunctivae: conjunctivae normal Sclerae: sclerae normal Pupils: Equal, round and reactive pupils present EOM: EOMs intact bilaterally Direct Ophthalmoscopy: No no photophobia Neck Neck: Yes no lymphadenopathy, No tender and Yes no JVD Thyroid: Thyroid normal Carotids: no bruits Chest Chest palpation & inspection: no tenderness Resp Effort & Inspection: normal respiratory effort, no audible wheezes, not labored and no stridor Auscultation: no crackles, no rales, no rhonchi and no wheezes Cardio Jugular venous distension: no JVD Rate: regular rate, not bradycardic and not tachycardic Rhythm: regular rhythm Bruits: no carotid bruits Peripheral pulses: Peripheral pulses 2+ throughout GI Inspection: Yes normal to inspection, No abdominal wall ecchymosis and No visible herniation Palpation (GI): Soft to palpation, nontender, no guarding, not rigid and No hepatosplenomegaly present Auscultation: normoactive bowel sounds General: Yes no CVA tenderness Back/Spine/Pelvis Back: no CVA tenderness and No back tenderness Cervical Spine: cervical ROM normal Thoracic/Lumbar Spine: thoracic and lumbar spine normal to inspection, straight leg raise negative bilaterally, No thoraco-lumbar ROM limited and No lumbar spinal tenderness Skin Lesions: no lesions Rashes: no rashes Wounds: no wounds Neuro General: oriented to person, oriented to place, patient oriented x3, CN's II-XI intact bilaterally and No confusion Cranial nerves: Yes Equal, round and reactive pupils present and Yes Normal accommodation reflex present Cognition (Neuro): normal cognition Speech: No Abnormal speech present Gait exam (Neuro): Normal gait present Motor exam (neuro): 5/5 motor strength present throughout Extrem Right upper extremity: full ROM; no cyanosis Left upper extremity: full ROM; no cyanosis Right lower extremity: no edema Left lower extremity: no edema Psych Appearance: grossly normal Mental Status: mental status grossly normal Affect: normal affect Attitude: cooperative Thought process: Normal thought process present Office Procedures Flu Questionnaire Does the patient have a severe egg allergy?: No Immunizations Fluarix Triv [id number] (PF) 45 mcg (15 mcg x 3)/0.5 mL IM syringe Performing Provider: Brooks Martinez PA-C [facility] Documented (not given) by: PREMA Aguilar on 08/02/24 09:50 Reason Not Given: Patient Refused Coding Level of Care Code Est Pt Prev Care 40-64y(60951) Diagnoses Annual physical exam Z00.00 Tinnitus, bilateral H93.13 Essential hypertension I10 Hypertension type: essential hypertension Mixed hyperlipidemia E78.2 Hyperlipidemia type: mixed hyperlipidemia Impaired glucose metabolism R73.09 Impacted cerumen, left ear H61.22 Additional Codes MAXIMINO-7 Assessment Billing - MAXIMINO-7 Assessment Tool: MAXIMINO-7 Assessment 91858 ([id number]) PHQ-9 - 05415 - PHQ-9 Billing: Yes ([id number]) Assessment & Plan Assessment & Plan (1) Annual physical exam: Code(s): Z00.00 - Encounter for general adult medical examination without abnormal findings Category: Medical Plan: As per HPI (2) Tinnitus, bilateral: Code(s): H93.13 - Tinnitus, bilateral Category: Medical Plan: Has been experiencing bilateral tinnitus for a few months now. He does admit to using aspirin from time to time for migraine headaches. He denies any decrease in his hearing. We did discuss possible aspirin use be a cause of his tinnitus Try for hearing exam and refer to ENT for evaluation of his tinnitus (3) HTN (hypertension): Code(s): I10 - Essential (primary) hypertension Category: Medical Qualifiers: Hypertension type: essential hypertension Qualified Code(s): I10 - Essential (primary) hypertension Plan: Patient's blood pressure acceptable today in office. Will continue him on his current dose of antihypertensive medication with goal blood pressure to remain below 140/90 (4) HLD (hyperlipidemia): Code(s): E78.5 - Hyperlipidemia, unspecified Category: Medical Qualifiers: Hyperlipidemia type: mixed hyperlipidemia Qualified Code(s): E78.2 - Mixed hyperlipidemia Plan: Patient's most recent fasting lipid panel showing excellent control of his total cholesterol and LDL. Goal LDL to remain below 130 (5) Impaired glucose metabolism: Code(s): R73.09 - Other abnormal glucose Category: Medical Plan: Most recent fasting blood sugar slightly elevated at 106. Will continue working on dietary modifications and being more physically active to reduce his fasting blood sugar (6) Impacted cerumen, left ear: Code(s): H61.22 - Impacted cerumen, left ear Category: Medical Plan: PER HPI Orders: Orders Influenza [id number] Immunization 08/02/24 Z23 - Encounter for immunization Referrals Ear/Nose/Throat Referral H93.13 - Tinnitus, bilateral Speech and Hearing Referral H90.3 - Sensorineural hearing loss, bilateral, H93.13 - Tinnitus, bilateral Medications: Changed From tamsulosin 0.4 mg PO BID 60 caps 3RF N40.0 - Benign prostatic hyperplasia without lower urinary tract symptoms To tamsulosin 0.4 mg PO BID 180 caps 3RF 90 days N40.0 - Benign prostatic hyperplasia without lower urinary tract symptoms Refilled losartan-hydrochlorothiazide 50-12.5 mg 1 tab PO DAILY 90 tabs 3RF 90 days E78.2 - Mixed hyperlipidemia, I10 - Essential (primary) hypertension ezetimibe 10 mg PO DAILY 90 tabs 3RF 90 days E78.2 - Mixed hyperlipidemia pravastatin 10 mg PO DAILY 90 tabs 3RF E78.2 - Mixed hyperlipidemia tamsulosin 0.4 mg PO BID 60 caps 3RF N40.0 - Benign prostatic hyperplasia without lower urinary tract symptoms Patient Instructions: Goal: Blood pressure to remain below 140/90 Barriers: Adherence to physical activity and healthy eating habits
--- OUTSIDE RECORDS SUMMARY | 2024-08-02 13:39 | XMS_ITS | Clinical Summary ---
Author Organization [facility] Address [address] [place] [address] Care Team Providers Care Finance Administrator Name Role Phone Brooks Martinez Primary Care Provider + Medications No known medications Active Problems No known active problems Social History Tobacco Use Types Packs/Day Years Used Date Smoking Tobacco: Never Assessed Sex and Gender Information Value Date Recorded Sex Assigned at Unknown 12/25/2022 11:50 AM EDT Gender Identity Other 12/25/2022 11:50 AM EDT Sexual Orientation Other 12/25/2022 11 :50 AM EDT Plan of Treatment Health Maintenance Due Date Last Done Comments Hepatitis C Virus Screening 1960 HIV Screening 1973 DTaP/Tdap/Td Vaccines (1 - Tdap) 10/14/1979 Pap Smear (Ages 21-65) 1981 Colonoscopy 2005 Pneumococcal Vaccines 50+ (1 of 1 - PCV) 2010 Zoster (Shingles) Vaccine (1 of 2) 2010 Influenza Vaccine 02/05/2024 COVID-19 Vaccine ( - 2023-2 5 season) 2024 RSV Vaccine 60 years and old er and Patients (1 - 1-dose 75+ series) 10/14/2035 Hepatitis B Vaccines Aged Out No long er eligible based on patient's age to complete this topic Pneumococcal Vaccine: Pediat eli (0-5 Years) and At-Risk Patients (6 to 49 Years) Aged Out No longer eligible b ased on patient's age to complete this topic Care Teams Finance Administrator Relationship Specialty Start Date End Date Brooks Martinez PA [facility] [place] [id number] PCP - General Adult Health - PA/APNP/ENGLISH LANGUAGE LEARNER TUTOR/SUPERVISOR FINISH END 12/25/22
--- OUTSIDE RECORDS SUMMARY | 2024-08-02 13:39 | XMS_ITS ---
Author Name [facility] Organization Unknown History of Medication Use Medication Directions Dispensed Refills Start Date End Date Stat No known medications No known medications active
--- OUTSIDE RECORDS SUMMARY | 2024-08-02 13:39 | XMS_ITS | Encounter Summary ---
Author Organization [facility] Address [address] [place] [id number] Care Team Providers Care Implementation Architect Name Role Phone Brooks Martinez Primary Care Provider + Encounter Details Date Type Department Care Team ([facility] st Contact Info) Description 04/23/2022 Erroneous Encounter [facility] CONVERSION DEPT [address] [place] [address] Provider, Inez, Social History Tobacco Use Types Packs/Day Years Used Date Smoking Tobacco: Never Assessed Sex and Gender Information Value Date Recorded Sex Assigned at Unknown 12/25/2022 11:50 AM EDT Gender Identity Other 12/25/2022 11:50 AM EDT Sexual Orientation Other 12/25/2022 11 :50 AM EDT documented as of this encounter Plan of Treatment Not on file documented as of this encounter Visit Diagnoses Not on filedocumented in this encounter Care Teams Implementation Architect Relationship Specialty Start Date End Date Brooks Martinez PA [facility] [place] [phone] PCP - General Adult Health - PA/APNP/SCHOOL AGE LEAD TEACHER/WEDDING FLORIST 12/25/22 documented as of this encounter
== END 2024-08-02 10:31 | disposition home or self-care (01) ==
PROVIDERS: PCP Physician Assistant; Visit Provider Physician Assistant
DX: Z23 Encounter for immunization (principal)

== ENCOUNTER → 2024-08-02 09:18 | Outpatient (BNVA) | payer BC, SELFPAY | PROVIDERS: PCP Physician Assistant; Visit Provider Physician Assistant | DX: Z00.00 Encounter for general adult medical examination without abnormal findings (principal); H93.13 Tinnitus, bilateral; I10 Essential (primary) hypertension; E78.2 Mixed hyperlipidemia; R73.09 Other abnormal glucose; H61.22 Impacted cerumen, left ear; H90.3 Sensorineural hearing loss, bilateral; N40.0 Benign prostatic hyperplasia without lower urinary tract symptoms | CPT/HCPCS: 90471; 96127 ==

== ENCOUNTER 2024-08-09 12:17 | Outpatient (REF) | payer BC, SELFPAY ==
--- OUTSIDE RECORDS SUMMARY | 2024-08-09 13:41 | XMS_ITS | Clinical Summary ---
Author Organization [facility] Address [address] [place] [address] Care Team Providers Care Professor Of Forest Planning Name Role Phone Brooks Martinez Primary Care [...] age to complete this topic Care Teams Professor Of Forest Planning Relationship Specialty Start Date End Date Brooks Martinez PA [address] [facility] [address] PCP - General Adult Health - PA/APNP/STREETCAR DISPATCHER/ATHLETIC TEAM PHYSICIAN 12/25/22
--- OUTSIDE RECORDS SUMMARY | 2024-08-09 13:41 | XMS_ITS | Encounter Summary ---
Author Organization [facility] Address [address] [place] [address] Care Team Providers Care School Photographer Name Role Phone Brooks Martinez Primary Care Provider + Encounter Details Date Type Department Care Team ([facility] st Contact Info) Description 04/23/2022 Erroneous Encounter [facility] CONVERSION DEPT [address] [place] [address] Provider, Inez, Social History Tobacco Use Types [...] on filedocumented in this encounter Care Teams School Photographer Relationship Specialty Start Date End Date Brooks Martinez PA [facility] [place] [phone] PCP - General Adult Health - PA/APNP/LINUX SYSTEM ADMIN/SECURITY SYSTEMS ENGINEER 12/25/22 documented as of this encounter
== END 2024-08-09 12:18 | disposition home or self-care (01) ==
LOC: HO.SH 12:17
PROVIDERS: Visit Provider Physician Assistant
DX: Z13.89 Encounter for screening for other disorder (principal)

== ENCOUNTER 2024-08-11 10:38 | Outpatient (REF) | payer BC, SELFPAY ==
--- OUTSIDE RECORDS SUMMARY | 2024-08-11 11:42 | XMS_ITS | Clinical Summary ---
Author Organization [facility] Address [address] [place] [address] Care Team Providers Care Managed Care Manager Name Role Phone Brooks Martinez Primary Care [...] age to complete this topic Care Teams Managed Care Manager Relationship Specialty Start Date End Date Brooks Martinez PA [address] [facility] [place] [address] PCP - General Adult Health - PA/APNP/FLEET MANAGER/DISPATCH/LDR RN 12/25/22
--- OUTSIDE RECORDS SUMMARY | 2024-08-11 11:42 | XMS_ITS | Encounter Summary ---
Author Organization [facility] Address [address] [place] [address] Care Team Providers Care Tower Switch Operator Name Role Phone Brooks Martinez Primary Care Provider + Encounter Details Date Type Department Care Team ([facility] st Contact Info) Description 04/23/2022 Erroneous Encounter [facility] CONVERSION DEPT [address] [place] [address] Provider, Inze, Social History Tobacco Use Types Packs/Day Years [...] on filedocumented in this encounter Care Teams Tower Switch Operator Relationship Specialty Start Date End Date Brooks Martinez PA [facility] [facility] [place] [phone] PCP - General Adult Health - PA/APNP/STOCKROOM KEEPER/X RAY CONTROL EQUIPMENT REPAIRER 12/25/22 documented as of this encounter
[2024-08-11 11:55] LABS: Prostate Specific Antigen 3.71 ng/mL (<0.05-4.0)
== END 2024-08-11 10:39 | disposition home or self-care (01) ==
LOC: HO.LAB 10:38
PROVIDERS: PCP Physician Assistant; Visit Provider Urology
DX: R97.20 Elevated prostate specific antigen [PSA] (principal); N41.9 Inflammatory disease of prostate, unspecified; N40.0 Benign prostatic hyperplasia without lower urinary tract symptoms; Z12.5 Encounter for screening for malignant neoplasm of prostate
CPT/HCPCS: 36415; 84153

== ENCOUNTER 2024-09-10 08:17 | Outpatient (AMB) | payer BC, SELFPAY ==
--- NOTE | 2024-09-10 08:26 | MHC.OFFVIS ---
Intake Visit Reasons: Followup/PSA/PVR Intake Note: Patient is present for follow up/PSA/PVR Urology Medication:TAMSLOSIN Antibiotic Allergy:CEPHALEXIN Blood Thinner:NONE PSA: 3.71 TODAY'S PVR: 23ml Egg Tester Required: No Allergies cephalexin [Keflex] Allergy (Unknown, Verified 09/10/24 08:31) rash niacin [Niaspan Extended-Release] Allergy (Unknown, Verified 09/10/24 08:31) Rash Statins Support Allergy (Unknown, Verified 09/10/24 08:31) Rash Medication List - Last Reconciled 09/10/24 by Elsie Beckman MD dutasteride (Avodart) 0.5 mg PO DAILY ezetimibe 10 mg PO DAILY 90 days losartan-hydrochlorothiazide 50-12.5 mg 1 tab PO DAILY 90 days pravastatin 10 mg PO DAILY tamsulosin 0.4 mg PO BID 90 days HPI Comments Details: 09/10/24--Ta is a 63-year-old male presenting with a follow-up for Benign Prostatic Hyperplasia (BPH) and elevated Prostate-Specific Antigen (PSA). He has been treated with Tamsulosin BID for a moderately enlarged prostate. His recent PSA -08/11/24 was 3.71 ng/mL, showing a slight rise. The patient reports frequent and prolonged urination, particularly prolonged voiding periods. He avoids alcohol, especially beer, as a symptom management strategy. He is interested in GreenLight laser therapy. I have provided a pamphlet for review. Post-procedure, the patient will have a catheter for a few days with possible burning and urgency during urination during the healing period. Will start 5 alpha reductaste inhibitor prior to procedure, avodart ordered. Urinary Symptoms Review - Frequent urination - Prolonged voiding period, approximately one hour - Nocturia reported, with extended time in the bathroom - Symptoms impact daily life, particularly avoiding beer consumption to manage symptoms Results - Labs: Recent PSA level recorded at 3.71 ng/mL on August 11, 2024. 05/07/24--cystoscopy findings bilobar enlargement prominent median lobe no trabeculations noted patient will continue on tamsulosin discussed GreenLight laser may be beneficial if urinary symptoms worsen. PSA 10/30/23-2.71 ng/mL. 11/06/2023 Ta is here for follow-up. He was initially seen on 09/24/2023 for elevated PSA. Urinalysis on 09/24/2023 was nitrite positive and was sent for culture. Discussed increasing tamsulosin from once a day to b.i.d.. Urine culture came back positive and he was treated with Bactrim. I have reviewed renal ultrasound performed 10/20/2023--enlarged prostate, question prostate nodule. Bladder-- Prevoid bladder volume is 165 mL. Postvoid bladder volume is 174 mL. The patient states that since increasing the tamsulosin to twice a day his urine flow has improved. In review of labs PSA on 08/12/2023 was 6.30. Repeat PSA 10/30/2023 is 2.71 which is likely improved due to treatment of UTI with antibiotics. Urinalysis-negative. Prostate Exam: Prostate is smooth no suspicious nodules palpated, mildly enlarged. PVR 79 mL. Will continue to monitor PSA and PVR. Tamsulosin b.i.d. Plan office cystoscopy on follow-up. 09/24/2023--Ta is a 63-year-old male who is here for new patient evaluation due to elevated PSA. The patient reports obstructive voiding symptoms, weak urinary flow with hesitancy. Denies dysuria or gross hematuria. I have discussed increasing tamsulosin to b.i.d. I have discussed PSA is a blood test, prostate specific antigen and is an enzyme secreted by the prostate gland. Elevated PSA may be due to multiple conditions including prostate inflammatory condition, enlarged prostate or prostate cancer. Urinalysis is nitrite positive. I will send urine for culture. Will await results of urine culture prior to starting antibiotics. Discussed repeat PSA. Will check renal/bladder ultrasound. 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 Cognitive needs: No Hearing needs: No Vision needs: Yes (glasses) Review of Systems Const All systems reviewed & are unremarkable except as noted in HPI and below Reports no additional complaints Eyes Reports no additional complaints ENT Reports no additional complaints Card Reports no additional complaints Resp Reports no additional complaints GI Reports no additional complaints Reports as per HPI Musc Reports no additional complaints Skin/Breast Reports system reviewed and no additional complaints, except as documented Neuro Reports no additional complaints Psych Reports no additional complaints Endo Reports no additional complaints Yinka/Lymph Reports no additional complaints Aller/Immun Reports no additional complaints Results Reviewed Results Reviewed: Date of Service: 10/20/23 EXAMINATION: US RETROPERITONEAL COMPLETE (RENAL) CLINICAL INFORMATION: Elevated prostate-specific antigen (PSA). COMPARISON: Renal ultrasound 02/21/2016. TECHNIQUE: Real-time imaging of the kidneys and bladder. FINDINGS: RIGHT KIDNEY: 11.1 x 6.5 x 6.2 cm (SAG x AP x TRV). The kidney is normal in size, contour, and echogenicity. Renal cortical thickness is normal. No calculi or focal parenchymal lesions. No hydronephrosis. LEFT KIDNEY: 11.8 x 5.9 x 5.7 cm (SAG x AP x TRV). The kidney is normal in size, contour, and echogenicity. Renal cortical thickness is normal. No calculi or focal parenchymal lesions. No hydronephrosis. BLADDER: Well distended and normal. Bilateral ureteral jets are demonstrated. Prevoid bladder volume is 165 mL. Postvoid bladder volume is 174 mL. PROSTATE: There is a prostatic impression upon the bladder base. Some anterior nodularity is questioned. Prostate dimensions are 4.4 x 4.1 x 4.8 cm (volume 45.4 mL). IMPRESSION: 1. Unremarkable ultrasound appearance of the bilateral kidneys. 2. There is an increased postvoid residual volume. 3. There is prostatomegaly. A prostate nodule is questioned. Given the provided history of an elevated serum PSA level, consider further evaluation with prostate MRI. Assessment & Plan Assessment & Plan (1) Weak urinary stream: Comment: improved on flomax Code(s): R39.12 - Poor urinary stream Category: Medical (2) BPH loc w urin obs/LUTS: Code(s): N40.1 - Benign prostatic hyperplasia with lower urinary tract symptoms Category: Medical (3) Screening PSA (prostate specific antigen): Code(s): Z12.5 - Encounter for screening for malignant neoplasm of prostate Category: Medical Plan Discussion Notes I discussed with Mr. Vu the recommendation for proceeding with GreenLight laser therapy to address Benign Prostatic Hyperplasia symptoms. I explained the procedure is Ambulatory outpatient in the OR, often resulting in significant symptomatic relief, with a catheter required for a few days post-procedure and a possible brief period of burning post-operation. I outlined associated risks, including bleeding, which is mitigated by pre-procedural medication to shrink the prostate. We have agreed on a plan to coordinate scheduling and obtain necessary insurance authorizations, requiring the patient to adhere to dietary restrictions prior to the operation. Mr. Vu expressed comprehension and willingness to proceed, citing expectations of improved urinary function per testimonials from peers. Plan The management for the patient?s Benign Prostatic Hyperplasia includes consideration of the GreenLight laser therapy, a minimally invasive outpatient procedure aimed at reducing symptoms. The short-term catheter use post-procedure has been explained, and medication to reduce the prostate size has been prescribed to lower bleeding risks. Pre-operative instructions and insurance procedures have been outlined, anticipating the intervention within the coming weeks. Orders: Orders AMB Urinalysis Automated Today Z13.9 - Encounter for screening, unspecified Medications: New dutasteride (Avodart) 0.5 mg PO DAILY 90 caps 1RF Patient Instructions: Patient Instructions - Begin the prescribed medication to shrink the prostate prior to the procedure. - Anticipate placement of a catheter for a few days following the procedure. - Expect some burning during urination post-procedure. - Follow dietary restrictions starting the day before the procedure, including no eating after midnight. - Ensure arrangements for a ride to and from the procedure appointment. - Contact the office if there are any issues with medications or insurance authorizations. - Follow-up will occur to coordinate scheduling for the procedure. - Reach out with any significant changes in symptoms or if any questions arise. The patient had an opportunity to ask questions regarding treatment plan. The patient expressed understanding and agreement with the above treatment plan. The patient is aware they should contact our office by phone for worsening of their current condition or the appearance of new symptoms. Compliance is encouraged with any medications and followup testing that is ordered. It is a privilege to be allowed the opportunity to participate in the urologic care of your patient. If you have any questions or concerns regarding treatment for the above conditions please do not hesitate to contact me. The office telephone contact is [phone]. This note is constructed in part using voice recognition software. While every effort has been made to ensure accuracy training systems officer errors may have been included. Yours sincerely, Elsie Beckman MD Scribe Plan - Not visible on output: Patient was informed and verbally consented to the use of an ambient scribe for clinic note documentation during this visit. Coding Level of Care Code Est Pt Level 4 (66837) Diagnoses Weak urinary stream R39.12 BPH loc w urin obs/LUTS N40.1 Screening PSA (prostate specific antigen) Z12.5
--- OUTSIDE RECORDS SUMMARY | 2024-09-10 08:40 | XMS_ITS | Encounter Summary ---
Author Organization [facility] Address [address] [place] [address] Care Team Providers Care Post Exchange Manager Name Role Phone Brooks Martinez Primary Care Provider + Encounter Details Date Type Department Care Team ([facility] st Contact Info) Description 04/23/2022 Erroneous Encounter [facility] CONVERSION DEPT [address] [place] [address] Provider, Inez, Social History Tobacco Use Types [...] on filedocumented in this encounter Care Teams Post Exchange Manager Relationship Specialty Start Date End Date Brooks Martinez PA [facility] [place] [phone] PCP - General Adult Health - PA/APNP/RUBBER STAMP DIE INSPECTOR/WOOL SUPPLIER 12/25/22 documented as of this encounter
--- OUTSIDE RECORDS SUMMARY | 2024-09-10 08:40 | XMS_ITS | Clinical Summary ---
Author Organization [facility] Address [address] [place] [address] Care Team Providers Care Aquatic Instructor Name Role Phone Brooks Martinez Primary Care [...] age to complete this topic Care Teams Aquatic Instructor Relationship Specialty Start Date End Date Brooks Martinez PA [address] [facility] [place] [id number] PCP - General Adult Health - PA/APNP/RESEARCH MECHANIC/GUEST ATTENDANT 12/25/22
== END 2024-09-10 09:52 | disposition home or self-care (01) ==
PROVIDERS: PCP Physician Assistant; Visit Provider Urology
DX: N40.1 Benign prostatic hyperplasia with lower urinary tract symptoms (principal); R39.12 Poor urinary stream; Z12.5 Encounter for screening for malignant neoplasm of prostate; Z13.9 Encounter for screening, unspecified
CPT/HCPCS: 99214

== ENCOUNTER → 2024-09-10 08:17 | Outpatient (BNVA) | payer BC, SELFPAY | PROVIDERS: PCP Physician Assistant; Visit Provider Urology | DX: N40.1 Benign prostatic hyperplasia with lower urinary tract symptoms (principal); R39.12 Poor urinary stream | CPT/HCPCS: 51798; 81003 ==

== ENCOUNTER 2024-10-05 08:14 | Outpatient (AMB) | payer BC, SELFPAY ==
[2024-10-05 08:21] VITALS: BP 128/82; PULSE 87; RESP 20; TEMP 36.6; O2SAT 96; BMI 31.0
--- NOTE | 2024-10-05 08:21 | A.OFFPC_ITS ---
Vital Signs 10/05/24 08:21 Height 5 ft 11 in Weight 222 lb 3.2 oz BMI 31.0 BP 128/82 Blood Pressure Location Lt brachial Position Sitting Respiration 20 Pulse 87 Pulse Source Pulse Oximeter Temp 97.8 F Temp Source Oral Pulse Oximetry (%) 96 Oxygen Delivery Method Room Air Intake Visit Reasons: possible hernia Vaccine Manager Required: No Accompanied by: Self / Same As Patient Allergies cephalexin [Keflex] Allergy (Unknown, Verified 10/05/24 08:30) rash niacin [Niaspan Extended-Release] Allergy (Unknown, Verified 10/05/24 08:30) Rash Statins Support Allergy (Unknown, Verified 10/05/24 08:30) Rash Medication List - Last Reconciled 10/05/24 by DAISY Rodriguez dutasteride (Avodart) 0.5 mg PO DAILY ezetimibe 10 mg PO DAILY 90 days losartan-hydrochlorothiazide 50-12.5 mg 1 tab PO DAILY 90 days pravastatin 10 mg PO DAILY tamsulosin 0.4 mg PO BID 90 days Tobacco use date assessed: 10/05/24 Dental Screening Dental Screen Date: 08/02/24 HPI possible hernia HPI Details The patient is a 63-year-old male who was presenting with complaints possible hernia Patient reports that Friday night after packing up suitcase, he noticed a lump in his scrotum Patient denies any pain to the scrotum. Denies any fevers or chills or any trauma to the area Patient reports that he had hernia repaired in the left groin about 15 years ago Reports that every once in a while he feels mild pulling and tugging in the area Left scrotum lump felt on examination The patient also reports a lump to the back of his neck that showed up recently as well Reports that he feels like it has gotten bigger. Reports that it does not hurt but is sensitive when it is squeezed The patient denies feeling sick and any systematic symptoms Reports that the only thing he has going on is his ongoing allergies He denies shortness of breath, chest pain heart palpitation or dizziness Denies abdominal pain or change in bowel habits Denies any burning urination or any new urinary symptoms [facility] Medical History HTN (hypertension) HLD (hyperlipidemia) BPH (benign prostatic hyperplasia) Surgical History H/O colonoscopy S/P left knee arthroscopy S/P nasal surgery History of back surgery S/P laparoscopic hernia repair [facility] Alcohol intake: current Alcohol intake frequency: holidays/special occasions only Patient Tobacco Use Status: Former Tobacco user e-Cigarette/Vaping Use: Never Used Second Hand Smoke Exposure: Yes Substance Use Type: Marijuana service: No Current occupational status: 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 Cognitive needs: No Hearing needs: No Vision needs: Yes (glasses) Questionnaire Thrive Questionnaire Date Thrive assessed: 10/05/24 I am a: Patient What is your living situation today?: I have a steady place to live Within the past 12 months, did the food you bought not last and you didn't have the money to get more?: Never true Within the past 12 months, did you worry whether your food would run out before you got money to buy more?: Never true Do you have trouble paying for medicines?: No Do you have trouble getting transportation to medical appointments?: No Do you have trouble paying your heating and electricity bill?: No Do you have trouble taking care of your child, family member or friend?: No Do you have trouble with day-to-day activities such as bathing, preparing meals, shopping, managing finances, etc.?: No Are you currently unemployed and looking for a job?: No Are you interested in more education?: No Please select the resources that you would like help with: None Currently or been in a relationship where the following occur: No concerns reported THRIVE Score: 0 AUDIT C Alcohol Use Questionnaire (AUDIT-C) 1. How often do you have a drink containing alcohol?: Monthly or less 2. How many drinks containing alcohol do you have on a typical day when you are drinking?: 1 or 2 3. How often do you have six or more drinks on one occasion?: Never Total Score: 1 MAXIMINO-7 AMB Questionnaire MAXIMINO-7 Date MAXIMINO - 7 assessed: 08/02/24 Source: Developed by Drs. Ta Sanchez, Alivia Islas, Tony Richardson and colleagues, with an educational lucy from [employer]. Review of Systems Const Reports headache(s) (sinus headache chronic) ENT Reports headache(s) (sinus headache chronic) and Denies sore throat Card Denies chest pain, Denies leg edema and Denies lightheadedness Resp Denies cough, Denies hemoptysis and Denies wheezing GI Denies abdominal pain, Denies melena, Denies constipation, Denies diarrhea and Denies vomiting Denies dysuria, Reports urinary frequency, Denies urinary urgency and Reports other (not emptying bladder fully) Musc Denies arthralgias, Denies joint swelling and Reports other (lump in the back on his neck) Skin/Breast Reports other (lump posterior neck) Neuro Denies Abnormal speech present and Reports headache(s) (sinus headache chronic) Psych Denies anxiety, Denies depression and Denies panic attacks Yinka/Lymph Denies easy bleeding and Denies easy bruising Aller/Immun Denies wheezing Physical exam (Primary Care) Vital Signs: Last Vital Signs Temp 97.8 F 10/05/24 08:21 Pulse 87 10/05/24 08:21 Resp 20 10/05/24 08:21 BP 128/82 10/05/24 08:21 Pulse Ox 96 10/05/24 08:21 Oxygen Delivery Method Room Air 10/05/24 08:21 BMI result Body Mass Index 31.0 Tobacco/Smoking Status: Tobacco use Status Tobacco use date assessed 10/05/24 10/05/24 08:27 Patient Tobacco Use Status Former Tobacco user 10/05/24 08:27 e-Cigarette/Vaping Use Never Used 10/05/24 08:27 Thrive Assessment: Date of Thrive Assessment Date Thrive assessed 10/05/24 10/05/24 08:27 Currently or been in a relationship where the following occur: No concerns reported Const General: healthy appearing, no acute distress, alert and awake Nutritional Appearance: well nourished Orientation/consciousness: oriented to person, oriented to place and oriented to time HENMT Ears: TM's normal bilaterally General nose exam: Normal nasal mucous membranes and turbinates present Eyes Conjunctivae: conjunctivae normal Sclerae: sclerae normal Pupils: Equal, round and reactive pupils present Neck Neck: Yes no lymphadenopathy and Yes no JVD Thyroid: Thyroid normal Carotids: no bruits Resp Effort & Inspection: normal respiratory effort and not tachypneic Auscultation: no crackles, no rales, no rhonchi and no wheezes Cardio Rate: regular rate Rhythm: regular rhythm Heart sounds: no murmurs and normal S1 and S2 GI Palpation (GI): Soft to palpation, nontender, no hepatomegaly and no splenomegaly Auscultation: normal bowel sounds Scrotum: scrotal mass on the left Skin General skin exam: no rashes or lesions noted and dry skin Lesions: lesion noted cyst posterior neck Neuro General: oriented to person, oriented to place and oriented to time Cranial nerves: Yes Equal, round and reactive pupils present Speech: No Abnormal speech present Gait exam (Neuro): Normal gait present Motor exam (neuro): no tremor noted Extrem Right upper extremity: full ROM Left upper extremity: full ROM Right lower extremity: full ROM; no edema Left lower extremity: full ROM; no edema Psych Mental Status: mental status grossly normal Speech and movement: Normal speech and movement present Affect: normal affect Attitude: cooperative Thought process: Normal thought process present Coding Level of Care Code Est Pt Level 3 (85722) Diagnoses Lump on neck R22.1 Lump in scrotum N50.89 Time Spent (min) 29 Assessment & Plan Assessment & Plan (1) Lump on neck: Code(s): R22.1 - Localized swelling, mass and lump, neck Category: Medical Plan: Ultrasound ordered to further evaluate, +General surgery referral placed (2) Lump in scrotum: Code(s): N50.89 - Other specified disorders of the male genital organs Category: Medical Plan: Ultrasound ordered Orders: Orders US scrotum Today N50.89 - Other specified disorders of the male genital organs US soft tiss head and/or neck Today R22.1 - Localized swelling, mass and lump, neck Referrals General Surgery Referral R22.1 - Localized swelling, mass and lump, neck
--- OUTSIDE RECORDS SUMMARY | 2024-10-05 08:28 | XMS_ITS | Encounter Summary ---
Author Organization [facility] Address [address] [place] [address] Care Team Providers Care Ticketing Clerk Name Role Phone Brooks Martinez Primary Care Provider + Encounter Details Date Type Department Care Team ([facility] st Contact Info) Description 04/23/2022 Erroneous Encounter [facility] CONVERSION DEPT [address] [place] [phone] Provider, Inez, Social History Tobacco Use Types [...] on filedocumented in this encounter Care Teams Ticketing Clerk Relationship Specialty Start Date End Date Brooks Martinez PA [facility] [facility] [place] [id number] PCP - General Adult Health - PA/APNP/MOTION PICTURE EQUIPMENT MACHINIST/FLUORESCENT LIGHTING MODEL MAKER 12/25/22 documented as of this encounter
--- OUTSIDE RECORDS SUMMARY | 2024-10-05 08:28 | XMS_ITS | Clinical Summary ---
Author Organization [facility] Address [address] [place] [id number] Care Team Providers Care Forest Firefighter Name Role Phone Brooks Martinez Primary Care [...] age to complete this topic Care Teams Forest Firefighter Relationship Specialty Start Date End Date Brooks Martinez PA [address] [facility] [place] [address] PCP - General Adult Health - PA/APNP/PACKAGE CHECKER/SAUTE CHEF 12/25/22
== END 2024-10-05 08:49 | disposition home or self-care (01) ==
LOC: HO.HMCH 08:15
PROVIDERS: PCP Physician Assistant
DX: R22.1 Localized swelling, mass and lump, neck (principal); N50.89 Other specified disorders of the male genital organs

== ENCOUNTER 2024-10-11 11:15 | Outpatient (AMB) | payer BC, SELFPAY ==
--- NOTE | 2024-10-11 11:17 | MHC.OFFVIS ---
Vital Signs 10/11/24 11:23 Height 5 ft 11 in Weight 227 lb BMI 31.7 BP 178/93 H Blood Pressure Location Rt brachial Position Sitting Pulse 78 Intake Visit Reasons: Localized swelling, mass and lump, neck Intake Note: Patient referred by pcp Brooks Martinez PA-C for mass on posterior neck. 2nd concern Lt groin area cyst. Patient c/o: blew up 3wks ago. US scheduled at the end of the month. Children'S Counselor Required: No Accompanied by: Self / Same As Patient Allergies cephalexin [Keflex] Allergy (Unknown, Verified 10/11/24 11:22) rash niacin [Niaspan Extended-Release] Allergy (Unknown, Verified 10/11/24 11:22) Rash Statins Support Allergy (Unknown, Verified 10/11/24 11:22) Rash Medication List - Last Reconciled 10/11/24 by Sherwin Day MD dutasteride (Avodart) 0.5 mg PO DAILY ezetimibe 10 mg PO DAILY 90 days losartan-hydrochlorothiazide 50-12.5 mg 1 tab PO DAILY 90 days pravastatin 10 mg PO DAILY tamsulosin 0.4 mg PO BID 90 days HPI Comments Details: Patient presents with a left posterior neck sebaceous cyst. He has had this indeterminate time. His increasing in size, and, symptomatic. Like to have removed. He has had this sebaceous cyst excised in the past. 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 Office Procedures Excision [id number] scalp/neck/hands/feet/genitalia 2.1cm-3cm Details: Risks, benefits, alternatives of left posterior sebaceous cyst excision were reviewed with the patient included but not limited to bleeding, infection, recurrence, numbness, pain, scarring the patient wished to proceed. All questions answered. Consent signed. After appropriate positioning, patient underwent 1% lidocaine and Betadine prep and a transverse by elliptical incision encompassing the cyst with dimensions as described above was uneventfully performed. Specimen sent to pathology. Wound was irrigated, secured hemostasis, and closed using running subcuticular 3-0 Vicryl suture followed by Steri-Strips and sterile dressings. Patient tolerated procedure well. Procedure code (CPT) selection complete Office Meds lidocaine 1 %-epinephrine 1:100,000 injection solution Performing Provider: Sherwin Day MD Performing Location: [facility] [place] [facility] Administered by: Sherwin Day MD on 10/11/24 11:52 Dose Route Admin Location Dispensed Lot Number Expiration Date [facility] Fish And Wildlife Biologist 20 mL Infiltration 20 mL Assessment & Plan Assessment & Plan (1) Sebaceous cyst: Code(s): L72.3 - Sebaceous cyst Category: Surgical Plan: Patient was been given local instructions including ice to the wound periodically, may shower in 2 days removing only outside dressing leaving Steri-Strips intact, Tylenol or Motrin for pain and patient was see me as directed or p.r.n. Orders: Orders AMB Excision Today L72.3 - Sebaceous cyst Medications: New lidocaine-epinephrine 1 %-1:100,000 20 mL Infiltration ONCE 30 mL 0RF L72.3 - Sebaceous cyst Coding Level of Care Code New Pt Level 5 (98827) Diagnoses Sebaceous cyst L72.3 CPT Codes Scalp/Neck/Hands/Feet/Genetalia - CPT: [id number]-[id number] scalp/neck/hands/feet/genitalia 2.1cm-3cm ([id number])
[2024-10-11 11:23] VITALS: BP 178/93; PULSE 78; BMI 31.7
--- OUTSIDE RECORDS SUMMARY | 2024-10-11 13:31 | XMS_ITS | Clinical Summary ---
Author Organization [facility] Address [address] [place] [address] Care Team Providers Care Thermal Cutting Machine Operator Name Role Phone Brooks Martinez Primary [...] age to complete this topic Care Teams Thermal Cutting Machine Operator Relationship Specialty Start Date End Date Brooks Martinez PA [address] [facility] [place] [address] PCP - General Adult Health - PA/APNP/INSIDE SALES ACCOUNT EXECUTIVE/SALES REPRESENTATIVE HEALTH INSURANCE 12/25/22
--- OUTSIDE RECORDS SUMMARY | 2024-10-11 13:31 | XMS_ITS | Encounter Summary ---
Author Organization [facility] Address [address] [place] [address] Care Team Providers Care Shorthand Reporter Name Role Phone Brooks Martinez Primary Care Provider + Encounter Details Date Type Department Care Team ([facility] st Contact Info) Description 04/23/2022 Erroneous Encounter [facility] CONVERSION DEPT [address] [place] [address] Provider, Inez, Social History Tobacco Use Types [...] on filedocumented in this encounter Care Teams Shorthand Reporter Relationship Specialty Start Date End Date Brooks Martinez PA [facility] [place] [phone] PCP - General Adult Health - PA/APNP/PROSTHETIC LAB TECHNICIAN/OLIVER FILTER OPERATOR 12/25/22 documented as of this encounter
== END 2024-10-11 11:57 | disposition home or self-care (01) ==
LOC: HO.HGS 11:16
PROVIDERS: PCP Physician Assistant; Visit Provider Surgery
DX: L72.0 Epidermal cyst (principal)
CPT/HCPCS: 11423; 99204

== ENCOUNTER 2024-10-11 11:15 | Outpatient (REF) | payer BC, SELFPAY ==
--- OUTSIDE RECORDS SUMMARY | 2024-10-11 14:29 | XMS_ITS | Clinical Summary ---
Author Organization [facility] Address [address] [place] [address] Care Team Providers Care Asset Protection Manager Name Role Phone Brooks Martinez Primary [...] age to complete this topic Care Teams Asset Protection Manager Relationship Specialty Start Date End Date Brooks Martinez PA [address] [facility] [place] [address] PCP - General Adult Health - PA/APNP/CLAY PROCESSING FACTORY WORKER/CELLULAR PHONE REPAIRER 12/25/22
--- OUTSIDE RECORDS SUMMARY | 2024-10-11 14:29 | XMS_ITS | Encounter Summary ---
Author Organization [facility] Address [address] [place] [address] Care Team Providers Care Floor Attendant Name Role Phone Brooks Martinez Primary Care Provider + Encounter Details Date Type Department Care Team ([facility] st Contact Info) Description 04/23/2022 Erroneous Encounter [facility] CONVERSION DEPT [address] [place] [address] Provider, Inez, Social History Tobacco Use Types [...] on filedocumented in this encounter Care Teams Floor Attendant Relationship Specialty Start Date End Date Brooks Martinez PA [facility] [place] [phone] PCP - General Adult Health - PA/APNP/BRAILLE TYPIST/HYPNOTHERAPIST 12/25/22 documented as of this encounter
== END 2024-10-11 11:16 | disposition home or self-care (01) ==
LOC: HO.LNP 11:15
PROVIDERS: PCP Physician Assistant; Visit Provider Surgery
DX: L72.3 Sebaceous cyst (principal)
CPT/HCPCS: 11423; 88304; J2004

== ENCOUNTER 2024-10-19 10:01 | Outpatient (AMB) | payer BC, SELFPAY ==
--- NOTE | 2024-10-19 10:01 | MHC.OFFVIS ---
Intake Visit Reasons: 1 wk s/p WLE~ cyst Lt post neck Intake Note: Patient here s/p WLE cyst on Lt post neck. Reports incision healing well. Patient c/o: no concerns. Steri strips fell off. Social Sciences Department Chair Required: No Accompanied by: Self / Same As Patient Allergies cephalexin [Keflex] Allergy (Unknown, Verified 10/19/24 10:04) rash niacin [Niaspan Extended-Release] Allergy (Unknown, Verified 10/19/24 10:04) Rash Statins Support Allergy (Unknown, Verified 10/19/24 10:04) Rash HPI Comments Details: Patient presents for follow-up status post sebaceous cyst excision. No wound issues or complaints. Pathology was benign. 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 All questions answered. Coding Level of Care Code Global (91068) Diagnoses Encounter for postoperative wound check Z48.89
--- OUTSIDE RECORDS SUMMARY | 2024-10-19 11:37 | XMS_ITS | Clinical Summary ---
Author Organization [facility] Address [address] [place] [address] Care Team Providers Care Dial Printer Name Role Phone Brooks Martinez Primary Care [...] age to complete this topic Care Teams Dial Printer Relationship Specialty Start Date End Date Brooks Martinez PA [address] [place] [address] PCP - General Adult Health - PA/APNP/PERIODICALS CLERK/SENIOR TAX MANAGER 12/25/22
--- OUTSIDE RECORDS SUMMARY | 2024-10-19 11:37 | XMS_ITS | Encounter Summary ---
Author Organization [facility] Address [address] [place] [address] Care Team Providers Care Orthotic Finish Grinding Technician Name Role Phone Brooks Martinez Primary Care Provider + Encounter Details Date Type Department Care Team ([facility] st Contact Info) Description 04/23/2022 Erroneous Encounter [facility] CONVERSION DEPT [address] [place] [address] Provider, Inez, Social History Tobacco Use Types [...] on filedocumented in this encounter Care Teams Orthotic Finish Grinding Technician Relationship Specialty Start Date End Date Brooks Martinez PA [facility] [place] [phone] PCP - General Adult Health - PA/APNP/NEWSPAPER CARRIERS SUPERVISOR/SOLUTION ADVISOR 12/25/22 documented as of this encounter
== END 2024-10-19 10:29 | disposition home or self-care (01) ==
LOC: HO.HGS 10:01
PROVIDERS: PCP Physician Assistant; Visit Provider Surgery
DX: Z48.89 Encounter for other specified surgical aftercare (principal)
CPT/HCPCS: 99024

== ENCOUNTER → 2024-10-19 10:01 | Outpatient (BNVA) | payer BC, SELFPAY | PROVIDERS: PCP Physician Assistant; Visit Provider Surgery | DX: L72.3 Sebaceous cyst (principal) ==

== ENCOUNTER 2024-11-02 14:43 | Outpatient (REF) | payer BC, SELFPAY ==
--- NOTE | ~2024-11-02 | US_ITS ---
CLINICAL HISTORY: N50.89 - SCROTAL MASS US Scrotum with Doppler Comparison: None Findings: Right testicle normal echotexture, 4.9 x 2 x 2.9 cm. Left testicle normal echotexture, 4.8 x 2.2 x 3.2 cm. No testicular mass lesion seen. At level of concern and separate and inferior to the left testicle there is 12 x 13 x 13 mm eccentrically thick-walled cystic mass (with peripheral vascularity). Normal color flow and arterial/venous spectral tracing of both testicles. A few right epididymal cysts measuring up to 12 mm. A few small calcification in the distal left epididymis. Small bilateral hydroceles. IMPRESSION: No testicular mass lesion. At level of concern and separate and inferior to the left testicle there is 12 x 13 x 13 mm eccentrically thick walled cystic mass (with peripheral vascularity). Finding is nonspecific and indeterminate. Benign and malignant neoplastic processes and inflammatory/infectious lesions (such as abscess), enter into the differential considerations. Appropriate workup recommended. This document has been electronically signed by: Luisa Jones MD on 11/04/2024 10:09:27
--- NOTE | ~2024-11-02 | US_ITS ---
CLINICAL HISTORY: R22.1 - Localized swelling, mass and lump, neck --- Additional Notes or Special Ins tructions: LUMP TO THE BACK OF THE NECK US of the posterior mid neck Comparison: None Findings: There is an ill-defined nonvascular focus of heterogeneous echogenicity measuring 7 mm x 5 mm x 10 mm. Impression: Indeterminate posterior cervical focus, which could indicate infection, or neoplasm. This document has been electronically signed by: Raquel Hardin MD on 11/03/2024 17:52:45
--- OUTSIDE RECORDS SUMMARY | 2024-11-02 17:44 | XMS_ITS | Encounter Summary ---
Author Organization [facility] Address [address] [place] [address] Care Team Providers Care Game Design Instructor Name Role Phone Brooks Martinez Primary Care Provider + Encounter Details Date Type Department Care Team (Late st Contact Info) Description 04/23/2022 Erroneous Encounter [facility] CONVERSION DEPT [address] [place] [address] Provider, Inez, Social History Tobacco Use Types Packs/Day Years Used Date Smoking Tobacco: Never Assessed Comments Unknown Sex and Gender Information Value Date Recorded Sex Assigned at Unknown 12/25/2022 11:50 AM EDT Legal Sex Male 7:10 PM EST Gender Identity Other 12/25/2022 11:50 AM EDT Sexual Orientation Other 12/25/2022 11 :50 AM EDT documented as of this encounter Plan of Treatment Not on file documented as of this encounter Visit Diagnoses Not on filedocumented in this encounter Care Teams Game Design Instructor Relationship Specialty Start Date End Date Brooks Martinez PA [address] [facility] [place] [address] PCP - General Adult Health - PA/APNP/JACQUARD LOOM WEAVER/EMPLOYEE RELATIONS DIRECTOR 12/25/22 documented as of this encounter
--- OUTSIDE RECORDS SUMMARY | 2024-11-02 17:45 | XMS_ITS | Clinical Summary ---
Author Organization [facility] Address [address] [place] [address] Care Team Providers Care Investigator Operator Name Role Phone Brooks Martinez Primary [...] on patient's age to complete this topic Insurance BLUE CROSS OUT OF STATE - PPO Care Teams Investigator Operator Relationship Specialty Start Date End Date Brooks Martinez PA [address] [place] [phone] PCP - General Adult Health - JIMBO/ENA/ROUTE SALES REPRESENTATIVE/TAILOR MEN'S READY TO WEAR 12/25/22
== END 2024-11-02 14:44 | disposition home or self-care (01) ==
LOC: HO.US 14:43
PROVIDERS: PCP Physician Assistant
DX: N50.89 Other specified disorders of the male genital organs (principal); R22.1 Localized swelling, mass and lump, neck
CPT/HCPCS: 76536; 76870

== ENCOUNTER → 2024-11-02 14:44 | Outpatient (BNV) | payer BC, SELFPAY | PROVIDERS: PCP Physician Assistant; Visit Provider Radiology Diagnostic Radiology | DX: R22.1 Localized swelling, mass and lump, neck (principal) | CPT/HCPCS: 76536; 76870; 93975 ==

== ENCOUNTER 2024-11-16 12:15 | Day surgery (SDC) | payer BC, SELFPAY ==
--- OUTSIDE RECORDS SUMMARY | 2024-11-04 15:49 | XMS_ITS | Clinical Summary ---
Author Organization [facility] Address [address] [place] [address] Care Team Providers Care Belly Packer Name Role Phone Brooks Martinez Primary Care [...] OUT OF STATE - PPO Care Teams Belly Packer Relationship Specialty Start Date End Date Brooks Martinez PA [address] [place] [phone] PCP - General Adult Health - JIMBO/ENA/DOCKET SPECIALIST/IPHONE DEVELOPER 12/25/22
--- OUTSIDE RECORDS SUMMARY | 2024-11-04 15:49 | XMS_ITS | Encounter Summary ---
Author Organization [facility] Address [address] [place] [address] Care Team Providers Care Safe Deposit Attendant Name Role Phone Brooks Martinez Primary Care Provider + Encounter Details Date Type Department Care Team (Late st Contact Info) Description 04/23/2022 Erroneous Encounter [facility] CONVERSION DEPT [address] [place] [address] Provider, Inez, Social History Tobacco Use Types [...] on filedocumented in this encounter Care Teams Safe Deposit Attendant Relationship Specialty Start Date End Date Brooks Martinez PA [address] [facility] [place] [address] PCP - General Adult Health - PA/APNP/VEST BACKER/SENIOR RESEARCH MANAGER 12/25/22 documented as of this encounter
[2024-11-12 08:27] VITALS: BMI 31.0
--- NOTE | 2024-11-15 13:21 | P.CONAN_ITS ---
Documented by User: Juana Meek NP 11/15/24 13:22 HPI - Anesthesia Eval Consult details Narrative: 64yo M for Laser Ablation Prostate w/Green Light PMFSH Active Problems Active Problems: All Active Problems Encounter for postoperative wound check (Acute) Sebaceous cyst (Acute) Lump on neck (Acute) Lump in scrotum (Acute) Impacted cerumen, left ear (Acute) Impaired glucose metabolism (Acute) Sensorineural hearing loss (SNHL) of both ears (Acute) HTN (hypertension) (Acute) HLD (hyperlipidemia) (Acute) Tinnitus, bilateral (Acute) Screening PSA (prostate specific antigen) (Acute) BPH loc w urin obs/LUTS (Acute) Weak urinary stream (Acute) Elevated PSA (Acute) Colon cancer screening (Acute) S/P left knee arthroscopy (Acute) Osteoarthritis, knee (Acute) Atypical chest pain (Acute) Prostatitis (Acute) Annual physical exam (Acute) Past Medical History Medical History (Updated 11/16/24 @ 13:07 by Paige Fountain RN) Perforation bowel HTN (hypertension) HLD (hyperlipidemia) BPH (benign prostatic hyperplasia) Family History Family history of problems with anesthesia: No Surgical History Surgical History (Updated 10/19/24 @ 10:16 by Sherwin Day MD) H/O colonoscopy S/P left knee arthroscopy S/P nasal surgery History of back surgery S/P laparoscopic hernia repair History of Problems with Anesthesia: No Social History [facility] Alcohol intake: current Alcohol intake frequency: holidays/special occasions only Patient Tobacco Use Status: Former Tobacco user e-Cigarette/Vaping Use: Never Used Second Hand Smoke Exposure: Yes Substance Use Type: Marijuana service: No Current occupational status: retired 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 Cognitive needs: No Hearing needs: No Vision needs: Yes (glasses) Meds Allergies Allergy/AdvReac Type Severity Reaction Status Date / Time cephalexin [Keflex] Allergy Unknown rash Verified 10/19/24 10:04 niacin Allergy Unknown Rash Verified 10/19/24 10:04 [Niaspan Extended-Release] Statins Support Allergy Unknown Rash Verified 10/19/24 10:04 Exam Height,Weight and Vital Signs: Height 5 ft 11 in Weight 100.698 kg Assessment and Plan Assessment Anesthesia Assessment: Chart Reviewed Final Anesthetic Review Family History of Problems with Anesthesia: No History of Problems with Anesthesia: No Documented by User: Rk Worley MD 11/23/24 17:39 [facility] Past Medical History Medical History (Updated 11/16/24 @ 13:07 by Paige Fountain RN) Perforation bowel HTN (hypertension) HLD (hyperlipidemia) BPH (benign prostatic hyperplasia) Surgical History Surgical History (Updated 10/19/24 @ 10:16 by Sherwin Day MD) H/O colonoscopy S/P left knee arthroscopy S/P nasal surgery History of back surgery S/P laparoscopic hernia repair Social History Social History Housing: Condominium Alcohol intake: current Alcohol intake frequency: holidays/special occasions only Patient Tobacco Use Status: Former Tobacco user e-Cigarette/Vaping Use: Never Used Second Hand Smoke Exposure: Yes Substance Use Type: Marijuana service: No Current occupational status: retired 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 Cognitive needs: No Hearing needs: No Vision needs: Yes (glasses) Meds Allergies Allergy/AdvReac Type Severity Reaction Status Date / Time cephalexin [Keflex] Allergy Unknown rash Verified 10/19/24 10:04 niacin Allergy Unknown Rash Verified 10/19/24 10:04 [Niaspan Extended-Release] Statins Support Allergy Unknown Rash Verified 10/19/24 10:04 Assessment and Plan Final Anesthetic Review NPO: No ASA Class: II Final Preanesthetic Review: No Changes in Pt Med Stat, Meds/Allgs Chart Reviewed, Consent Obtained/Reviewed and Anes Risks/Benef Reviewed Patient Risk: Low Procedure Risk: Low Anesthetic Plan Anesthetic Plan: MAC: Disposition: Standard PACU
[2024-11-16] VITALS (7 sets, daily range): BP systolic 95–140; BP diastolic 50–90; PULSE 63–83; RESP 16; TEMP 36.1–36.4; O2SAT 96–97; BMI 30.7
[2024-11-16] MEDS: Lactated Ringers 1,000 ML 100 ML IVCONT (13:35)
--- NOTE | 2024-11-16 14:19 | W.PM.OPN ---
Operative Note Operative Note Date of Service: 11/16/24 Narrative: PreOperative Diagnosis: BPH Post Operative Diagnosis: BPH Procedure: GreenLight Laser Enucleation of the prostate CPT 09574 Surgeon: Dr Elsie Beckman Anesthesia: General History of bladder outlet obstruction. Treated with alpha-brianda and avodart. Still with symptoms. Recommendation for prostate procedure with laser enucleation of prostate. Risks and benefits have been discussed. Procedure: After informed consent was verified the patient was brought to the operating room and placed in a supine position. Anesthesia was administered per protocol. Patient was placed in modified dorsal lithotomy position and prepped and draped in a sterile fashion. Safety pause time-out was confirmed. Antibiotics have been given. Cipro 400 mg IV. A Twenty-four Iranian laser cystoscope was inserted per urethra. No abnormalities were found of the anterior and bulbar urethra. The prostatic urethra showed moderate enlargement of median lobe and bilobar enlargement. The bladder was examined and both ureteric orifices were seen in their normal positions away from the area of interest. Mild trabeculations noted in bladder. Using a GreenLight laser with initial settings of 80 tello incisions were made at the 5 and 7 o'clock position. The incisions were taken down from the bladder neck down to the area just proximal of the veru. These were gradually deepened in order to define the lateral aspects of the median lobe area. The deep boundary of enucleation was defined by the prostate surgical capsule. Once clearly defined the grooves were extended in the lateral directions. In order to effectively ablate and enucleate the tissue the laser power was increased to 110 tello and then 130 Tello. The median lobe was initially treated, he tissue was approached from both the left lateral side and from the medial aspect. The lateral lobes were then addressed starting with the left lateral lobe. The tissue was removed down to the level of the veru. Once complete a similar procedure was performed on the right-hand side tissue. Again ureteric orifice was clearly seen. There was complete vaporization of the prostate with no tissue available to send to pathology. Both ureteric orifices were reviewed again and shown to be patent and away from any areas of energy damage. The apical area was reviewed and any stray mucosal ooze was controlled. Good homeostasis was noted. A 22 Iranian Donovan catheter 30 cc balloon, was placed into the bladder using a flexible stylet. pink tinged efflux was obtained upon irrigation with a Bety piston syringe. (50 mL sterile water placed into the balloon) and gentle traction was placed. A hemostat was used to hold tension on the catheter to control bleeding during patient movement and transport to recoveryt room. A drainage bag was placed. The patient tolerated the procedure well, he was extubated in the operating and transferred in a stable condition to the recovery area. Once transportation is complete to the PACU the hemostat will be removed. Maximum Tello: 130 Total Joules: 49,547 Drains: Donovan catheter- [address]
--- NOTE | 2024-11-16 14:19 | MHC.SHP ---
Pre-Procedural Eval Section A - 24 Hr Update-Section A only Date of Service: 11/16/24 The patient is an INPATIENT: No The patient has been examined within 24 hours of the surgical procedure. The History & Physical has been completed within 30 days and I have reviewed it.: Yes Section B - Complete if H&P > 30 days Chief Complaint: Benign prostatic hyperplasia with lower urinary tr Allergies: Allergies Allergy/AdvReac Type Severity Reaction Status Date / Time cephalexin [Keflex] Allergy Unknown rash Verified 10/19/24 10:04 niacin Allergy Unknown Rash Verified 10/19/24 10:04 [Niaspan Extended-Release] Statins Support Allergy Unknown Rash Verified 10/19/24 10:04 Plan Diagnosis/Plan: Unchanged I have reviewed the history and physical and performed a pertinent physical examination on my patient. No changes have occurred unless specified. Greenlight laser prostate ablation. Risks discussed including but not limited to hematuria, urgency, waggoner catheter. Time Spent With Patient Time: Total time managing care of this patient today ____ minutes.
[2024-11-16] MEDS: Phenazopyridine HCL 200 MG TABLET PO (16:19)
== END 2024-11-16 17:20 | disposition home or self-care (01) ==
PROVIDERS: PCP Physician Assistant; Visit Provider Urology
PROC: (CPT 52648; principal; 2024-11-16 14:30)
DX: N40.1 Benign prostatic hyperplasia with lower urinary tract symptoms (principal); R39.12 Poor urinary stream; R35.0 Frequency of micturition; I10 Essential (primary) hypertension; E78.5 Hyperlipidemia, unspecified; Z79.899 Other long term (current) drug therapy; Z88.1 Allergy status to other antibiotic agents; Z88.8 Allergy status to other drugs, medicaments and biological substances; Z98.890 Other specified postprocedural states; Z87.891 Personal history of nicotine dependence
CPT/HCPCS: 52649; 87086; J0131; J0744; J2003; J2405; J2704; J3010

== ENCOUNTER → 2024-11-16 12:15 | Outpatient (BNV) | payer BC, SELFPAY | PROVIDERS: PCP Physician Assistant; Visit Provider Urology | DX: N40.0 Benign prostatic hyperplasia without lower urinary tract symptoms (principal) | CPT/HCPCS: 52649 ==

== ENCOUNTER → 2024-11-18 09:10 | Outpatient (BNVA) | payer BC, SELFPAY | PROVIDERS: PCP Physician Assistant; Visit Provider Urology | DX: N40.1 Benign prostatic hyperplasia with lower urinary tract symptoms (principal) | CPT/HCPCS: 51700; 51798 ==

== ENCOUNTER 2024-12-31 13:43 | Outpatient (AMB) | payer BC, SELFPAY ==
--- OUTSIDE RECORDS SUMMARY | 2024-12-31 14:10 | XMS_ITS | Encounter Summary ---
Author Organization [facility] Address [address] [place] [address] Care Team Providers Care Motor Equipment Commanding Officer Name Role Phone Brooks Martinez Primary Care Provider + Encounter Details Date Type Department Care Team (Late st Contact Info) Description 04/23/2022 Erroneous Encounter [facility] CONVERSION DEPT [address] [place] [address] Provider, Inez, Social History Tobacco Use Types [...] on filedocumented in this encounter Care Teams Motor Equipment Commanding Officer Relationship Specialty Start Date End Date Brooks Martinez PA [address] [facility] [place] [address] PCP - General Adult Health - PA/APNP/LICENSE INSPECTOR/IMMIGRATION CASE MANAGER 12/25/22 documented as of this encounter
--- NOTE | 2024-12-31 14:14 | MHC.OFFVIS ---
Intake Visit Reasons: Greenlight laser/cystic mass inferior L testicle Intake Note: Patient is present for greenlight laser/cystic mass inferior L testicle Urology Medication:Tamsulosin, Pyridium Antibiotic Allergy:CEPHALEXIN Blood Thinner:NONE PVR:37ml Computer Security Manager Required: No Allergies cephalexin (Keflex) Allergy (Unknown, Verified 12/31/24 14:15) rash niacin (Niaspan Extended-Release) Allergy (Unknown, Verified 12/31/24 14:15) Rash Statins Support Allergy (Unknown, Verified 12/31/24 14:15) Rash Medication List - Last Reconciled 12/31/24 by Elsie Beckman MD ciprofloxacin HCl (Cipro) 500 mg PO BID 7 days diclofenac sodium 75 mg PO BID PRN 30 days dutasteride (Avodart) 0.5 mg PO DAILY ezetimibe 10 mg PO DAILY 90 days losartan-hydrochlorothiazide 50-12.5 mg 1 tab PO DAILY 90 days phenazopyridine (Pyridium) 200 mg PO BID pravastatin 10 mg PO DAILY HPI Comments Details: 12/31/2024 History of Present Illness - The patient is a 64-year-old male presenting with a scrotal mass. - The lesion was first noticed during a shower and while on vacation. - Located on the left side, the mass is palpable at the bottom of the scrotum and nontender. - A scrotal ultrasound on 11/04/24 showed a 13-mm thick-walled cystic mass with no intra-testicular lesions. - History of benign prostatic hyperplasia (BPH) with a green light laser procedure on 11/16/24. - Post-procedure, improved urinary flow with occasional dribbling, expected to resolve. - Previously on tamsulosin and dutasteride for BPH management. Results - Scrotal ultrasound on 11/04/24: 13-mm thick-walled cystic mass, no intra-testicular lesions. Discussion Notes I discussed with the patient the presence of a scrotal mass, which is outside the testicle. We agreed on the need for surgical excision to confirm the diagnosis and ensure complete removal. The procedure will be scheduled as an outpatient surgery, and the mass will be sent for pathological evaluation. We also reviewed the patient's medication regimen, deciding to discontinue tamsulosin while continuing dutasteride for six more months. 09/10/24--Ta is a 63-year-old male presenting with a follow-up for Benign Prostatic Hyperplasia (BPH) and elevated Prostate-Specific Antigen (PSA). He has been treated with Tamsulosin BID for a moderately enlarged prostate. His recent PSA -08/11/24 was 3.71 ng/mL, showing a slight rise. The patient reports frequent and prolonged urination, particularly prolonged voiding periods. He avoids alcohol, especially beer, as a symptom management strategy. He is interested in GreenLight laser therapy. I have provided a pamphlet for review. Post-procedure, the patient will have a catheter for a few days with possible burning and urgency during urination during the healing period. Will start 5 alpha reductaste inhibitor prior to procedure, avodart ordered. Urinary Symptoms Review - Frequent urination - Prolonged voiding period, approximately one hour - Nocturia reported, with extended time in the bathroom - Symptoms impact daily life, particularly avoiding beer consumption to manage symptoms Results - Labs: Recent PSA level recorded at 3.71 ng/mL on August 11, 2024. 05/07/24--cystoscopy findings bilobar enlargement prominent median lobe no trabeculations noted patient will continue on tamsulosin discussed GreenLight laser may be beneficial if urinary symptoms worsen. PSA 10/30/23-2.71 ng/mL. 11/06/2023 Ta is here for follow-up. He was initially seen on 09/24/2023 for elevated PSA. Urinalysis on 09/24/2023 was nitrite positive and was sent for culture. Discussed increasing tamsulosin from once a day to b.i.d.. Urine culture came back positive and he was treated with Bactrim. I have reviewed renal ultrasound performed 10/20/2023--enlarged prostate, question prostate nodule. Bladder-- Prevoid bladder volume is 165 mL. Postvoid bladder volume is 174 mL. The patient states that since increasing the tamsulosin to twice a day his urine flow has improved. In review of labs PSA on 08/12/2023 was 6.30. Repeat PSA 10/30/2023 is 2.71 which is likely improved due to treatment of UTI with antibiotics. Urinalysis-negative. Prostate Exam: Prostate is smooth no suspicious nodules palpated, mildly enlarged. PVR 79 mL. Will continue to monitor PSA and PVR. Tamsulosin b.i.d. Plan office cystoscopy on follow-up. 09/24/2023--Ta is a 63-year-old male who is here for new patient evaluation due to elevated PSA. The patient reports obstructive voiding symptoms, weak urinary flow with hesitancy. Denies dysuria or gross hematuria. I have discussed increasing tamsulosin to b.i.d. I have discussed PSA is a blood test, prostate specific antigen and is an enzyme secreted by the prostate gland. Elevated PSA may be due to multiple conditions including prostate inflammatory condition, enlarged prostate or prostate cancer. Urinalysis is nitrite positive. I will send urine for culture. Will await results of urine culture prior to starting antibiotics. Discussed repeat PSA. Will check renal/bladder ultrasound. [facility] Medical History Perforation bowel HTN (hypertension) HLD (hyperlipidemia) BPH (benign prostatic hyperplasia) Surgical History H/O colonoscopy S/P left knee arthroscopy S/P nasal surgery History of back surgery S/P laparoscopic hernia repair Social History [facility] Alcohol intake: current Alcohol intake frequency: holidays/special occasions only Patient Tobacco Use Status: Former Tobacco user e-Cigarette/Vaping Use: Never Used Second Hand Smoke Exposure: Yes Substance Use Type: Marijuana service: No Current occupational status: retired 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 Cognitive needs: No Hearing needs: No Vision needs: Yes (glasses) Review of Systems Const All systems reviewed & are unremarkable except as noted in HPI and below Reports no additional complaints Eyes Reports no additional complaints ENT Reports no additional complaints Card Reports no additional complaints Resp Reports no additional complaints GI Reports no additional complaints Reports as per HPI Musc Reports no additional complaints Skin/Breast Reports system reviewed and no additional complaints, except as documented Neuro Reports no additional complaints Psych Reports no additional complaints Endo Reports no additional complaints Yinka/Lymph Reports no additional complaints Aller/Immun Reports no additional complaints Results Reviewed Results Reviewed: 11/04/24 1026 CLINICAL HISTORY: N50.89 - SCROTAL MASS US Scrotum with Doppler Comparison: None Findings: Right testicle normal echotexture, 4.9 x 2 x 2.9 cm. Left testicle normal echotexture, 4.8 x 2.2 x 3.2 cm. No testicular mass lesion seen. At level of concern and separate and inferior to the left testicle there is 12 x 13 x 13 mm eccentrically thick-walled cystic mass (with peripheral vascularity). Normal color flow and arterial/venous spectral tracing of both testicles. A few right epididymal cysts measuring up to 12 mm. A few small calcification in the distal left epididymis. Small bilateral hydroceles. IMPRESSION: No testicular mass lesion. At level of concern and separate and inferior to the left testicle there is 12 x 13 x 13 mm eccentrically thick walled cystic mass (with peripheral vascularity). Finding is nonspecific and indeterminate. Benign and malignant neoplastic processes and inflammatory/infectious lesions (such as abscess), enter into the differential considerations. Appropriate workup recommended. Date of Service: 10/20/23 EXAMINATION: US RETROPERITONEAL COMPLETE (RENAL) CLINICAL INFORMATION: Elevated prostate-specific antigen (PSA). COMPARISON: Renal ultrasound 02/21/2016. TECHNIQUE: Real-time imaging of the kidneys and bladder. FINDINGS: RIGHT KIDNEY: 11.1 x 6.5 x 6.2 cm (SAG x AP x TRV). The kidney is normal in size, contour, and echogenicity. Renal cortical thickness is normal. No calculi or focal parenchymal lesions. No hydronephrosis. LEFT KIDNEY: 11.8 x 5.9 x 5.7 cm (SAG x AP x TRV). The kidney is normal in size, contour, and echogenicity. Renal cortical thickness is normal. No calculi or focal parenchymal lesions. No hydronephrosis. BLADDER: Well distended and normal. Bilateral ureteral jets are demonstrated. Prevoid bladder volume is 165 mL. Postvoid bladder volume is 174 mL. PROSTATE: There is a prostatic impression upon the bladder base. Some anterior nodularity is questioned. Prostate dimensions are 4.4 x 4.1 x 4.8 cm (volume 45.4 mL). IMPRESSION: 1. Unremarkable ultrasound appearance of the bilateral kidneys. 2. There is an increased postvoid residual volume. 3. There is prostatomegaly. A prostate nodule is questioned. Given the provided history of an elevated serum PSA level, consider further evaluation with prostate MRI. Assessment & Plan Assessment & Plan (1) BPH loc w urin obs/LUTS: Code(s): N40.1 - Benign prostatic hyperplasia with lower urinary tract symptoms Category: Medical (2) Scrotal lesion: Code(s): N50.9 - Disorder of male genital organs, unspecified Category: Medical Plan Plan - Schedule surgical excision of the scrotal mass as an outpatient procedure and send the mass for pathological evaluation. - Discontinue tamsulosin and continue dutasteride for about six months for BPH management. Medications: Refilled dutasteride (Avodart) 0.5 mg PO DAILY 90 caps 1RF Patient Instructions: The patient had an opportunity to ask questions regarding treatment plan. The patient expressed understanding and agreement with the above treatment plan. The patient is aware they should contact our office by phone for worsening of their current condition or the appearance of new symptoms. Compliance is encouraged with any medications and followup testing that is ordered. It is a privilege to be allowed the opportunity to participate in the urologic care of your patient. If you have any questions or concerns regarding treatment for the above conditions please do not hesitate to contact me. The office telephone contact is [phone]. This note is constructed in part using voice recognition software. While every effort has been made to ensure accuracy power screwdriver operator errors may have been included. Yours sincerely, Elsie Beckman MD Scribe Plan - Not visible on output: Patient was informed and verbally consented to the use of an ambient scribe for clinic note documentation during this visit. Coding Level of Care Code Est Pt Level 4 (38408) Diagnoses BPH loc w urin obs/LUTS N40.1 Scrotal lesion N50.9
== END 2024-12-31 14:35 | disposition home or self-care (01) ==
LOC: HO.HUSH 13:44
PROVIDERS: PCP Physician Assistant; Visit Provider Urology
DX: N40.1 Benign prostatic hyperplasia with lower urinary tract symptoms (principal); N50.9 Disorder of male genital organs, unspecified
CPT/HCPCS: 99024

== ENCOUNTER 2025-01-18 07:48 | Day surgery (SDC) | payer BC, SELFPAY ==
--- OUTSIDE RECORDS SUMMARY | 2025-01-06 12:54 | XMS_ITS ---
Author Name [facility] Organization Unknown History of Medication Use Medication Directions Dispensed Refills Start Date End Date Stat No known medications No known medications active Encounters Encounter Type Encounter Reason Primary Diagnosis Location Date Ambulatory [facility] 03/26/2023 Ambulatory Other specified postprocedural states Other specified postprocedural states [facility] 03/26/2023 Ambulatory Other specified postprocedural states [facility] 12/25/2022 Care Team Organization Name Specialty Phone Email Start Date End Da te [facility] 12/25/20222024 [facility] 12/25/20222022 [facility] 12/25/2022 03/19/2023
--- OUTSIDE RECORDS SUMMARY | 2025-01-06 12:54 | XMS_ITS | Encounter Summary ---
Author Organization [facility] Address [address] [place] [address] Care Team Providers Care Vibration Engineer Name Role Phone Brooks Martinez Primary Care Provider + Encounter Details Date Type Department Care Team (Late st Contact Info) Description 04/23/2022 Erroneous Encounter [facility] CONVERSION DEPT [address] [place] [address] Provider, Inez, Social History Tobacco Use Types [...] on filedocumented in this encounter Care Teams Vibration Engineer Relationship Specialty Start Date End Date Brooks Martinez PA [address] [facility] [place] [phone] PCP - General Adult Health - PA/APNP/CAR PORTER/HORSE RACE TIMER 12/25/22 documented as of this encounter
[2025-01-14 08:41] VITALS: BMI 31.0
--- NOTE | 2025-01-17 11:53 | HO.ANESPROP2 ---
Documented by User: Juana Meek NP 01/17/25 11:55 HPI - Anesthesia Eval Consult details Narrative: 64yo M Excision Scrotal Lesion s/p laser prostate 11/2024 with ETT 7.5 PMFSH Active Problems Active Problems: All Active Problems Scrotal lesion (Acute) Encounter for postoperative wound check (Acute) Sebaceous cyst (Acute) Lump on neck (Acute) Lump in scrotum (Acute) Impacted cerumen, left ear (Acute) Impaired glucose metabolism (Acute) Sensorineural hearing loss (SNHL) of both ears (Acute) Tinnitus, bilateral (Acute) Screening PSA (prostate specific antigen) (Acute) BPH loc w urin obs/LUTS (Acute) Weak urinary stream (Acute) Elevated PSA (Acute) Colon cancer screening (Acute) Osteoarthritis, knee (Acute) Atypical chest pain (Acute) Prostatitis (Acute) Annual physical exam (Acute) HTN (hypertension) (Acute) HLD (hyperlipidemia) (Acute) S/P left knee arthroscopy (Acute) Past Medical History Medical History Perforation bowel HTN (hypertension) HLD (hyperlipidemia) BPH (benign prostatic hyperplasia) Family History Family history of problems with anesthesia: No Surgical History Surgical History History of surgery H/O abdominal surgery H/O colonoscopy S/P left knee arthroscopy S/P nasal surgery History of back surgery S/P laparoscopic hernia repair History of Problems with Anesthesia: No Social History Social History Housing: Condominium Alcohol intake: current Alcohol intake frequency: holidays/special occasions only Patient Tobacco Use Status: Former Tobacco user e-Cigarette/Vaping Use: Never Used Second Hand Smoke Exposure: Yes Use of substances other than those prescribed or required for medical reasons: Yes Substance Use Type: Marijuana Are you DNR?: No Advance Directives: No Advance Directives Information Provided: Yes Poor oral hygiene: No service: No Current occupational status: 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 Cognitive needs: No Hearing needs: No Vision needs: Yes (glasses) Meds Allergies Allergy/AdvReac Type Severity Reaction Status Date / Time cephalexin (Keflex) Allergy Unknown rash Verified 12/31/24 14:15 niacin (Niaspan Allergy Unknown Rash Verified 12/31/24 14:15 Extended-Release) Statins Support Allergy Unknown Rash Verified 12/31/24 14:15 Exam Height,Weight and Vital Signs: Height 5 ft 11 in Weight 100.698 kg Assessment and Plan Assessment Anesthesia Assessment: Chart Reviewed Final Anesthetic Review Family History of Problems with Anesthesia: No History of Problems with Anesthesia: No Documented by User: Marissa Rodriguez MD 01/18/25 08:50 PMFSH Past Medical History Medical History Perforation bowel HTN (hypertension) HLD (hyperlipidemia) BPH (benign prostatic hyperplasia) Surgical History Surgical History History of surgery H/O abdominal surgery H/O colonoscopy S/P left knee arthroscopy S/P nasal surgery History of back surgery S/P laparoscopic hernia repair Social History [facility] Alcohol intake: current Alcohol intake frequency: holidays/special occasions only Patient Tobacco Use Status: Former Tobacco user e-Cigarette/Vaping Use: Never Used Second Hand Smoke Exposure: Yes Use of substances other than those prescribed or required for medical reasons: Yes Substance Use Type: Marijuana Are you DNR?: No Advance Directives: No Advance Directives Information Provided: Yes Poor oral hygiene: No service: No 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 occupational status: 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 Cognitive needs: No Hearing needs: No Vision needs: Yes (glasses) Meds Allergies Allergy/AdvReac Type Severity Reaction Status Date / Time cephalexin (Keflex) Allergy Unknown rash Verified 12/31/24 14:15 niacin (Niaspan Allergy Unknown Rash Verified 12/31/24 14:15 Extended-Release) Statins Support Allergy Unknown Rash Verified 12/31/24 14:15 Exam Airway Mallampati Class: II TM Dist: >3cm Neck ROM: Limited Heart: rrr Lungs: cta Assessment and Plan Assessment Anesthesia Assessment: Anesthesia Plan Discussed Final Anesthetic Review NPO: Yes ASA Class: III Final Preanesthetic Review: No Changes in Pt Med Stat, Meds/Allgs Chart Reviewed, Consent Obtained/Reviewed and Anes Risks/Benef Reviewed Patient Risk: Intermediate Procedure Risk: Low Anesthetic Plan Anesthetic Plan: GA and MAC: Disposition: Standard PACU
[2025-01-18 08:11] VITALS: BMI 30.7
[2025-01-18 08:26] VITALS: BP 139/85; PULSE 71; RESP 16; TEMP 36.5; O2SAT 96
[2025-01-18] MEDS: Lactated Ringers 1,000 ML 100 ML IVCONT (08:33)
--- NOTE | 2025-01-18 09:05 | MHC.SHP ---
Pre-Procedural Eval Section A - 24 Hr Update-Section A only Date of Service: 01/18/25 The patient is an INPATIENT: No The patient has been examined within 24 hours of the surgical procedure. The History & Physical has been completed within 30 days and I have reviewed it.: Yes Section B - Complete if H&P > 30 days Chief Complaint: Disorder of male genital organs, unspecified Allergies: Allergies Allergy/AdvReac Type Severity Reaction Status Date / Time cephalexin (Keflex) Allergy Unknown rash Verified 12/31/24 14:15 niacin (Niaspan Allergy Unknown Rash Verified 12/31/24 14:15 Extended-Release) Statins Support Allergy Unknown Rash Verified 12/31/24 14:15 Plan I have reviewed the history and physical and performed a pertinent physical examination on my patient. No changes have occurred unless specified. Excision Left Scrotal cystic lesion. Time Spent With Patient Time: Total time managing care of this patient today ____ minutes.
--- NOTE | 2025-01-18 09:05 | W.PM.OPN ---
Operative Note Operative Note Date of Service: 01/18/25 Narrative: PreOperative Diagnosis:? ? Scrotal lesion Post Operative Diagnosis: epididymal lesion Procedure: Excision of Epididynal lesion Surgeon:?Dr Elsie Beckman Anesthesia:? General Procedure: After informed consent was verified the patient was brought to the operating room and placed in a supine position.? Anesthesia was performed per protocol. The patient was prepped and draped in the usual sterile fashion. Safety pause time-out was performed. Antibiotics confirmed. A marker was used to riley the median raphe. Attention was taken to the left hemiscrotum A horizontal incision was made through the skin with a 15 blade knife, cautery was used to incise the dartos fascia, the plane between the dartos fascia and the tunical vaginalis was developed with blunt dissection. the testicle is delivered into the operative field. The gubernaclar attachments are taken down with electrocautery. The tunica vaginalis was opened with sharp dissection there was a small amount of hydrocele fluid clear yellow. The mas was palpated inferiorly, the epididymis was exposed the lesion appeared to be attached to the lower pole of the epididimys. The mass and epididymal attachment was removed during dissection the vasa was transected, cauterized and tied. the lesion was sent to pathology, Cautery was used for hemostasis. The dartos fascia was closed with running locking 3-0 chromic and the skin was closed with interrupted 3-0 chromic there was good hemostasis noted. The patient tolerated the procedure well and was transferred to the recovery area upon completion. Complications: None EBL: minimal (<5 mL) Drains: None
[2025-01-18 11:46] VITALS: BP 133/84; PULSE 64; RESP 18; TEMP 36.1; O2SAT 99
[2025-01-18 11:51] VITALS: BP 137/77; PULSE 58; RESP 18; O2SAT 99
[2025-01-18 11:56] VITALS: BP 138/83; PULSE 64; RESP 18; O2SAT 99
[2025-01-18 12:11] VITALS: BP 146/89; PULSE 58; RESP 18; O2SAT 99
== END 2025-01-18 12:41 | disposition home or self-care (01) ==
PROVIDERS: PCP Physician Assistant; Visit Provider Urology
PROC: (CPT 54830; principal; 2025-01-18 09:50)
DX: N50.9 Disorder of male genital organs, unspecified (principal); N45.1 Epididymitis; N40.1 Benign prostatic hyperplasia with lower urinary tract symptoms; R35.0 Frequency of micturition; R35.1 Nocturia; I10 Essential (primary) hypertension; E78.5 Hyperlipidemia, unspecified; Z87.19 Personal history of other diseases of the digestive system; Z79.899 Other long term (current) drug therapy; Z88.1 Allergy status to other antibiotic agents; Z88.8 Allergy status to other drugs, medicaments and biological substances; Z98.890 Other specified postprocedural states; Z87.891 Personal history of nicotine dependence
CPT/HCPCS: 54830; 88304; 88305; J1956; J2003; J2704; J2795; J3010

== ENCOUNTER → 2025-01-18 07:48 | Outpatient (BNV) | payer BC, SELFPAY | PROVIDERS: PCP Physician Assistant; Visit Provider Urology | DX: N50.3 Cyst of epididymis (principal) | CPT/HCPCS: 54830 ==

== ENCOUNTER 2025-02-07 13:42 | Outpatient (AMB) | payer BC, SELFPAY ==
--- OUTSIDE RECORDS SUMMARY | 2025-02-07 13:52 | XMS_ITS | Encounter Summary ---
Author Organization [facility] Address [address] [facility] [address] [place] [phone] Phone Care Team Providers Care Home Care Chaplain Name Role Phone Brooks Martinez Primary Care Provider + Encounter Details Date Type Department Care Team (Late st Contact Info) Description 03/23/2019 Procedure Pass OR Admitting Dept - Virtual Department [address] [place] [address] Social History Tobacco Use Types Packs/Day Years Used Date Smoking Tobacco: Former Cigarettes Smokeless Tobacco: Never Comments:quit 20 yrs ago Alcohol Use Standard Drinks/Week Comments Yes 0 (1 standard drink = 0.6 oz pur e alcohol) occ Sex and Gender Information Value Date Recorded Sex Assigned at Not on file Legal Sex Male 10:57 AM EDT Gender Identity Not on file Sexual Orientation Not on file documented as of this encounter Plan of Treatment Not on file documented as of this encounter Visit Diagnoses Not on filedocumented in this encounter Care Teams Home Care Chaplain Relationship Specialty Start Date End Date Brooks Martinez PA [address] [place] [address] PCP - General 03/17/19 documented as of this encounter Additional Source Comments The information contained in this document represents components of the legal health record. It is not the complete legal health record.[facility]
--- OUTSIDE RECORDS SUMMARY | 2025-02-07 13:52 | XMS_ITS | Encounter Summary ---
Author Organization [facility] Address [address] [place] [address] Care Team Providers Care Residential Recycle Driver Name Role Phone Brooks Martinez Primary Care Provider + Encounter Details Date Type Department Care Team (Late st Contact Info) Description 04/23/2022 Erroneous Encounter [facility] CONVERSION DEPT [address] [place] [address] Provider, Inez, Social History Tobacco Use Types [...] on filedocumented in this encounter Care Teams Residential Recycle Driver Relationship Specialty Start Date End Date Brooks Martinez PA [address] [facility] [place] [phone] PCP - General Adult Health - PA/APNP/RELATIONSHIP MANAGER/SUPERVISOR PHOTOENGRAVING 12/25/22 documented as of this encounter
--- NOTE | 2025-02-07 14:10 | MHC.OFFVIS ---
Intake Visit Reasons: s/p biopsy Intake Note: Patient is present for excision scrotal lesion follow up Urology Medication:Tamsulosin, Pyridium Antibiotic Allergy:CEPHALEXIN Blood Thinner:NONE PVR:38ml Educational Assistant Teacher Required: No Allergies cephalexin (Keflex) Allergy (Unknown, Verified 02/07/25 14:16) rash niacin (Niaspan Extended-Release) Allergy (Unknown, Verified 02/07/25 14:16) Rash Statins Support Allergy (Unknown, Verified 02/07/25 14:16) Rash Medication List - Last Reconciled 02/07/25 by Elsie Beckman MD diclofenac sodium 75 mg PO BID PRN 30 days doxycycline hyclate 100 mg PO BID 7 days dutasteride (Avodart) 0.5 mg PO DAILY ezetimibe 10 mg PO DAILY 90 days levofloxacin 500 mg PO DAILY 3 days losartan-hydrochlorothiazide 50-12.5 mg 1 tab PO DAILY 90 days oxycodone 5 mg PO .[id number] PRN pravastatin 10 mg PO DAILY HPI Comments Details: 02/07/25--Ta is a 64-year-old male who is followed for elevated PSA he is on dutasteride he is status post scrotal lesion excision. At the time of the procedure the lesion appeared to be related to the epididymis. The pathology result noted chronic epididymitis with marked associated vascular congestion and sperm granuloma. Last PSA was 08/11/24--3.71 History of Present Illness - The patient is a 64-year-old male presenting with elevated PSA and post-surgical evaluation of a scrotal lesion excision. - The patient has been followed for elevated PSA levels and is currently on dutasteride therapy. - The patient underwent scrotal lesion excision, which was related to the epididymis. - Pathology results indicated chronic epididymitis with marked vascular congestion and sperm granuloma, along with a large hematoma. - The patient reports that the surgical site is healing, but there is a flap of skin that leaks fluid, which is not purulent. - The patient has a history of vasectomy performed by Dr. Avendaño. Results - Pathology: Chronic epididymitis with marked vascular congestion and sperm granuloma, large hematoma - PSA level: 3.71 ng/mL Plan - Initiate antibiotic therapy to address potential infection at the surgical site. - Okay for patient to use non-stick gauze to prevent adherence to clothing and to leave the area open at night for air exposure. - Schedule a follow-up with the nursing staff in two weeks to assess the incision site. - Plan for a follow-up PSA test in a few months to monitor levels. 12/31/2024 - The patient is a 64-year-old male presenting with a scrotal mass. - The lesion was first noticed during a shower and while on vacation. - Located on the left side, the mass is palpable at the bottom of the scrotum and nontender. - A scrotal ultrasound on 11/04/24 showed a 13-mm thick-walled cystic mass with no intra-testicular lesions. - History of benign prostatic hyperplasia (BPH) with a green light laser procedure on 11/16/24. - Post-procedure, improved urinary flow with occasional dribbling, expected to resolve. - Previously on tamsulosin and dutasteride for BPH management. Results - Scrotal ultrasound on 11/04/24: 13-mm thick-walled cystic mass, no intra-testicular lesions. 09/10/24--Ta is a 63-year-old male presenting with a follow-up for Benign Prostatic Hyperplasia (BPH) and elevated Prostate-Specific Antigen (PSA). He has been treated with Tamsulosin BID for a moderately enlarged prostate. His recent PSA -08/11/24 was 3.71 ng/mL, showing a slight rise. The patient reports frequent and prolonged urination, particularly prolonged voiding periods. He avoids alcohol, especially beer, as a symptom management strategy. He is interested in GreenLight laser therapy. I have provided a pamphlet for review. Post-procedure, the patient will have a catheter for a few days with possible burning and urgency during urination during the healing period. Will start 5 alpha reductaste inhibitor prior to procedure, avodart ordered. Urinary Symptoms Review - Frequent urination - Prolonged voiding period, approximately one hour - Nocturia reported, with extended time in the bathroom - Symptoms impact daily life, particularly avoiding beer consumption to manage symptoms Results - Labs: Recent PSA level recorded at 3.71 ng/mL on August 11, 2024. 05/07/24--cystoscopy findings bilobar enlargement prominent median lobe no trabeculations noted patient will continue on tamsulosin discussed GreenLight laser may be beneficial if urinary symptoms worsen. PSA 10/30/23-2.71 ng/mL. 11/06/2023 Ta is here for follow-up. He was initially seen on 09/24/2023 for elevated PSA. Urinalysis on 09/24/2023 was nitrite positive and was sent for culture. Discussed increasing tamsulosin from once a day to b.i.d.. Urine culture came back positive and he was treated with Bactrim. I have reviewed renal ultrasound performed 10/20/2023--enlarged prostate, question prostate nodule. Bladder-- Prevoid bladder volume is 165 mL. Postvoid bladder volume is 174 mL. The patient states that since increasing the tamsulosin to twice a day his urine flow has improved. In review of labs PSA on 08/12/2023 was 6.30. Repeat PSA 10/30/2023 is 2.71 which is likely improved due to treatment of UTI with antibiotics. Urinalysis-negative. Prostate Exam: Prostate is smooth no suspicious nodules palpated, mildly enlarged. PVR 79 mL. Will continue to monitor PSA and PVR. Tamsulosin b.i.d. Plan office cystoscopy on follow-up. 09/24/2023--Ta is a 63-year-old male who is here for new patient evaluation due to elevated PSA. The patient reports obstructive voiding symptoms, weak urinary flow with hesitancy. Denies dysuria or gross hematuria. I have discussed increasing tamsulosin to b.i.d. I have discussed PSA is a blood test, prostate specific antigen and is an enzyme secreted by the prostate gland. Elevated PSA may be due to multiple conditions including prostate inflammatory condition, enlarged prostate or prostate cancer. Urinalysis is nitrite positive. I will send urine for culture. Will await results of urine culture prior to starting antibiotics. Discussed repeat PSA. Will check renal/bladder ultrasound. [facility] Medical History Perforation bowel HTN (hypertension) HLD (hyperlipidemia) BPH (benign prostatic hyperplasia) Surgical History History of surgery H/O abdominal surgery H/O colonoscopy S/P left knee arthroscopy S/P nasal surgery History of back surgery S/P laparoscopic hernia repair Social History Housing: Condominium Alcohol intake: current Alcohol intake frequency: holidays/special occasions only Patient Tobacco Use Status: Former Tobacco user e-Cigarette/Vaping Use: Never Used Second Hand Smoke Exposure: Yes Substance Use Type: Marijuana service: No Current occupational status: retired 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 Cognitive needs: No Hearing needs: No Vision needs: Yes (glasses) Review of Systems Const All systems reviewed & are unremarkable except as noted in HPI and below Reports no additional complaints Eyes Reports no additional complaints ENT Reports no additional complaints Card Reports no additional complaints Resp Reports no additional complaints GI Reports no additional complaints Reports as per HPI Musc Reports no additional complaints Skin/Breast Reports system reviewed and no additional complaints, except as documented Neuro Reports no additional complaints Psych Reports no additional complaints Endo Reports no additional complaints Yinka/Lymph Reports no additional complaints Aller/Immun Reports no additional complaints Assessment & Plan Assessment & Plan (1) Elevated PSA: Code(s): R97.20 - Elevated prostate specific antigen [PSA] Category: Medical (2) BPH loc w urin obs/LUTS: Code(s): N40.1 - Benign prostatic hyperplasia with lower urinary tract symptoms Category: Medical (3) Scrotal lesion: Code(s): N50.9 - Disorder of male genital organs, unspecified Category: Medical Plan doxycycline hyclate 100 mg PO BID 14 tabs 0RF 7 days Orders: Orders PSA,Total (Free>4and<10) 5 Months R97.20 - Elevated prostate specific antigen [PSA] Medications: New doxycycline hyclate 100 mg PO BID 14 tabs 0RF 7 days Patient Instructions: The patient had an opportunity to ask questions regarding treatment plan. The patient expressed understanding and agreement with the above treatment plan. The patient is aware they should contact our office by phone for worsening of their current condition or the appearance of new symptoms. Compliance is encouraged with any medications and followup testing that is ordered. It is a privilege to be allowed the opportunity to participate in the urologic care of your patient. If you have any questions or concerns regarding treatment for the above conditions please do not hesitate to contact me. The office telephone contact is [phone]. This note is constructed in part using voice recognition software. While every effort has been made to ensure accuracy public speaking instructor errors may have been included. Yours sincerely, Elsie Beckman MD Scribe Plan - Not visible on output: Patient was informed and verbally consented to the use of an ambient scribe for clinic note documentation during this visit. Coding Level of Care Code Est Pt Level 4 (74451) Diagnoses Elevated PSA R97.20 BPH loc w urin obs/LUTS N40.1 Scrotal lesion N50.9
== END 2025-02-07 14:51 | disposition home or self-care (01) ==
LOC: HO.HUSH 13:42
PROVIDERS: PCP Physician Assistant; Visit Provider Urology
DX: R97.20 Elevated prostate specific antigen [PSA] (principal); N40.1 Benign prostatic hyperplasia with lower urinary tract symptoms; N50.9 Disorder of male genital organs, unspecified
CPT/HCPCS: 99024